=== PATIENT | male | born 1970 | race Caucasian/White ===

== ENCOUNTER 2016-10-20 14:02 | Emergency (ER) | payer OTHER, SELFPAY ==
[~2016-10-20] VITALS: Ht 175.3 cm; Wt 90.0 kg
[~2016-10-20 14:02] MED LIST: ACET65TA PO; AMLO10TA OR; CIPR-250 PO; CIPR500T4 PO; FLAG500T PO; LISIPOW PO; LOSA100T5 PO; METO50TA7 PO; NORC1TAB4 PO; NORCO ANEXSIA PO; NORCOBULK PO; NORCOTAB PO; VICO5TAB PO; VISINE OD; ZEST10TA4 PO
[2016-10-20] MEDS ORDERED: KETOROLAC 60 MG/2 ML VIAL (J1885) IM ONE (15:45)
[2016-10-20] MEDS ORDERED: NAPR500T3 PO (17:25)
[2016-10-20] MEDS ORDERED: BACL10TA2 PO (17:25)
[2016-10-20] MEDS ORDERED: MEDR4PAK PO (17:25)
[2016-10-20] MEDS ORDERED: LOSA100T5 PO (17:39)
[2016-10-20] MEDS ORDERED: cloNIDine 0.1 MG TAB PO ONE ×2 (17:45→18:30)
[2016-10-20 18:25] VITALS: BP 184/120
[2016-10-20 18:31] VITALS: BP 184/120
--- NOTE | 2016-10-21 06:43 | REP ---
CERVICAL SPINE COMPLETE: 10/20/2016. Comparison: 01/23/2016, 11/30/2015. Clinical history: Right upper extremity radiculopathy. Findings: Eight views including flexion and extension views and obliques. The three screws and plate fixation device from C4 through C6 are noted with bone plugs at C4-5 and C5-6 levels. This is unchanged. There is cervical spondylosis at multiple levels, greatest at C6-7 with anterior osteophytes and disc space narrowing. There is no malalignment. The dens and lateral masses align normally on all projections. Flexion and extension show adequate range of motion of the upper cervical spine with definite limitations of the lower cervical spine due to the hardware. No prevertebral swelling. Dens and lateral masses are normal in alignment. Foramina show mild encroachment at C5-6 and C6-7 due to uncinate spurs on the right and similarly on the left at C4-5 through C6-7. The other levels show patent foramina. Impression: 1. Status post anterior cervical discectomy and fusion from C4-C6 with a single screw through the plate into those respective vertebral bodies, intact. Fusion plugs at C4-5 and C5-6 are intact. 2. Spondylosis at C6-7 and C3-4. No compression deformity or destructive lesion. Somewhat limited range of motion but no instability. 3. Foraminal encroachment bilaterally as described. Signed by Dean Zurita MD 10/21/2016 07:56 A
--- NOTE | 2016-10-21 06:43 | REP ---
THORACIC SPINE COMPLETE: 10/20/2016. Comparison: MRI thoracic 08/25/2015, chest x-ray 11/26/2015. Clinical history: Right upper extremity radiculopathy. Pain. Findings: There is no scoliosis on the AP view. The pedicles, spinous and transverse processes are intact. Posterior rib articulations and medial clavicles are intact. On the lateral view, there are marginal osteophytes throughout the mid lower thoracic spine with some disc space narrowing but no acute compression deformity or focal lesion. Minor wedging mid thoracic vertebral body unchanged from previous chest x-ray and MRI. Craniocervical junction shows normal alignment and no compression. Impression: 1. Degenerative disc changes mid and lower thoracic spine without compression deformity or destructive bone lesion. No scoliosis or kyphosis. Signed by Dean Zurita MD 10/21/2016 07:56 A
== END 2016-10-20 18:41 | disposition home or self-care (01) ==
LOC: M ED 14:02
DX: M54.12 Radiculopathy, cervical region (principal); M51.34 Other intervertebral disc degeneration, thoracic region; M47.892 Other spondylosis, cervical region; M43.22 Fusion of spine, cervical region; I10 Essential (primary) hypertension; F17.200 Nicotine dependence, unspecified, uncomplicated; R51 Headache; K57.30 Diverticulosis of large intestine without perforation or abscess without bleeding; Z90.49 Acquired absence of other specified parts of digestive tract; Z79.899 Other long term (current) drug therapy
CPT/HCPCS: 72052; 72072; 96372; 99283; J1885

== ENCOUNTER → 2018-07-11 | Outpatient (CLI) | payer OTHER ==
[~2018-07-11] MED LIST changes: +BACL10TA2 PO; +MEDR4PAK PO; +NAPR-885 PO; -NORC1TAB4 PO; +NORC1TAB7 PO
[2018-07-11 19:27] LABS: ALBUMIN 3.9 GM/DL (3.2-5.2); BLOOD UREA NITROGEN 11 MG/DL (7-18); CARBON DIOXIDE LEVEL 28 MEQ/L (21-32); CHLORIDE LEVEL 104 MEQ/L (98-107); CREATININE FOR GFR 1.11 MG/DL (0.70-1.30); GLOMERULAR FILTRATION RATE > 60.0 (>60); GLUCOSE, FASTING 94 MG/DL (70-100); PHOSPHORUS LEVEL 3.3 MG/DL (2.5-4.9); SODIUM LEVEL 139 MEQ/L (136-145)
== END ==
LOC: M WUC 13:46
PROVIDERS: ATTEND Physician Assistant
DX: I10 Essential (primary) hypertension (principal)

== ENCOUNTER 2018-10-10 12:33 | Emergency (ER) | payer OTHER ==
[~2018-10-10] VITALS: Ht 175.3 cm; Wt 90.0 kg
--- NOTE | 2018-10-10 15:00 | REP ---
Left lower extremity deep vein duplex ultrasound: The deep veins demonstrate normal compression, normal Doppler color flow and normal Doppler waveforms with respiration and augmentation from the popliteal vein to the common femoral vein. 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 Impression: There is no left lower extremity deep vein thrombus. Electronically Signed by Chet Contreras MD 10/10/2018 02:52 P
[2018-10-10] MEDS ORDERED: PRED20TA PO (15:34)
[2018-10-10] MEDS ORDERED: TRIA1OI TOP (15:34)
[2018-10-10] MEDS ORDERED: CALC0.009 TOP (15:34)
[2018-10-10 15:40] VITALS: BP 189/106
== END 2018-10-10 15:48 | disposition home or self-care (01) ==
LOC: M ED 12:33
DX: I73.9 Peripheral vascular disease, unspecified (principal); I10 Essential (primary) hypertension; L40.9 Psoriasis, unspecified; F17.210 Nicotine dependence, cigarettes, uncomplicated

== ENCOUNTER 2020-05-27 12:38 | Inpatient (IN) | payer OTHER ==
[~2020-05-27] VITALS: Ht 175.3 cm; Wt 87.6 kg
[2020-05-27] MEDS: MULTIVITAMINS/MINERALS THERAP 1 TAB PO SCH (09:00)
[2020-05-27] MEDS: FOLIC ACID 1 MG TAB PO SCH (09:00)
[2020-05-27] MEDS: THIAMINE 100 MG TAB PO SCH ×2 (09:00→20:25)
[~2020-05-27 12:38] MED LIST changes: +CALC0.009 TOP; +PRED20TA PO; +TRIA1OI TOP
--- NOTE | 2020-05-27 13:06 | REP ---
INDICATION: neuro symptoms COMPARISON: None. TECHNIQUE: Axial noncontrast images from the skull base to the vertex with coronal reformations. This CT examination was performed using the following dose reduction techniques: Automated exposure control, adjustment of mA and/or kv according to the patient's size, and use of iterative reconstruction technique. FINDINGS: The ventricles, sulci, and cisterns are normal in position and appearance. Chen-white differentiation is maintained. No acute intracranial hemorrhage, mass/mass effect, pathology or trauma/injury. No evidence for acute infarction. No extra-axial fluid collection. Calvarium is intact. Paranasal sinuses and mastoid air cells are clear. IMPRESSION: No evidence for acute intracranial hemorrhage, edema or trauma/injury. <Electronically signed by Marquis Miller > 05/27/20 [id number]
[2020-05-27] MEDS ORDERED: LABETALOL 100MG/20ML VIAL IV ONE (13:50)
[2020-05-27 14:11] LABS: BASO # 0.1 10^3/uL (0.0-0.2); BASO % 1.1 % (0.0-1.0); EOS # 0.5 10^3/uL (0.0-0.5); HEMATOCRIT 54.5 % (42.0-52.0); HEMOGLOBIN 17.8 g/dl (13.5-17.5); LYMPH % 10.6 % (24.0-44.0); MEAN CORPUSCULAR HEMOGLOBIN 32.6 pg (27.0-33.0); MEAN CORPUSCULAR HGB CONC 32.7 g/dl (32.0-36.5); MEAN CORPUSCULAR VOLUME 99.8 fl (80.0-96.0); MONO # 0.9 10^3/uL (0.0-0.8); MONO % 10.4 % (2.0-8.0); NEUTROPHILS # 6.4 10^3/uL (1.5-8.5); NEUTROPHILS % 71.8 % (36.0-66.0); PLATELET COUNT, AUTOMATED 193 10^3/uL (150-450); RED BLOOD COUNT 5.46 10^6/uL (4.30-6.10)
[2020-05-27 14:26] LABS: ALBUMIN 3.5 GM/DL (3.2-5.2); ALT/SGPT 41 U/L (12-78); BILIRUBIN,TOTAL 0.7 MG/DL (0.2-1.0); BLOOD UREA NITROGEN 9 MG/DL (7-18); CALCIUM LEVEL 8.5 MG/DL (8.5-10.1); CARBON DIOXIDE LEVEL 27 MEQ/L (21-32); CHLORIDE LEVEL 108 MEQ/L (98-107); CK-MB VALUE MASS 2.5 NG/ML (<3.6); CPK CREATINE PHOSPHOKINASE 174 U/L (39-308); CREATININE FOR GFR 1.18 MG/DL (0.70-1.30); GLOMERULAR FILTRATION RATE > 60.0 (>60); GLUCOSE, FASTING 156 MG/DL (70-100); MB/CK RELATIVE INDEX 1.44 (< OR =4); SODIUM LEVEL 139 MEQ/L (136-145); TOTAL PROTEIN 7.1 GM/DL (6.4-8.2); TROPONIN I < 0.02 NG/ML (< 0.10)
[2020-05-27 14:43] LABS: RSV AMPLIFICATION NEGATIVE (NEGATIVE)
[2020-05-27] MEDS ORDERED: LORazepam 2 MG TAB PO PRN (14:45)
--- NOTE | 2020-05-27 14:50 | REPVR ---
PROCEDURE INFORMATION: Exam: MR Head Without Contrast Exam date and time: 05/27/2020 1:30 PM Age: 49 years old Clinical indication: Numbness / parasthesia; Bilateral; Patient HX: Tongue, lip numbness; Additional info: Stroke like symptoms TECHNIQUE: Imaging protocol: MR of the head without contrast. COMPARISON: CT Head without contrast 05/27/2020 12:47 PM FINDINGS: Brain: Multiple small foci of acute ischemia are present in the left cerebral hemisphere including within the left inferior parietal postcentral gyri and within the inferior parietal lobule. There is mild generalized cerebral volume loss and a small number of scattered foci of white matter T2 hyperintensity, nonspecific but commonly secondary to chronic small vessel ischemic change. Small focus of right pontine gliosis. No acute intracranial hemorrhage. Cerebral ventricles: No ventriculomegaly. Bones/joints: Unremarkable. Paranasal sinuses: Mild mucosal thickening. Mastoid air cells: No mastoid effusion. Orbital cavity: Unremarkable. Soft tissues: Unremarkable. Internal carotid arteries: Abnormal distal left internal carotid artery flow void from the distal cervical segment through the terminus. There is also blooming artifact within a presumed distal left M3 segment cortical branch, likely thrombus. IMPRESSION: 1. Multiple small foci of acute ischemia in the left cerebral hemisphere including within the parietal postcentral gyrus in keeping with sensory symptoms described in the history. No evidence of hemorrhage. Sulcal blooming artifact within the left cerebral hemisphere likely corresponds to an occluded M3 segment vessel corresponding with the distribution of infarction. 2. Abnormal distal left internal carotid artery flow void suspicious for slow flow or thrombus. Recommend CTA of the neck for further evaluation. Electronically signed by: Tomás Miranda On 05/27/2020 14:50:53 PM
--- NOTE | 2020-05-27 14:58 | REPVR ---
PROCEDURE INFORMATION: Exam: MR Angiogram Head Without Contrast, Arteries Exam date and time: 05/27/2020 1:30 PM Age: 49 years old Clinical indication: Numbness; Additional info: Stroke like symptoms TECHNIQUE: Imaging protocol: MR angiogram head without contrast. Exam focused on the arteries. COMPARISON: CT Head without contrast 05/27/2020 12:47 PM FINDINGS: There is moderate loss of flow related signal enhancement within the distal left cervical internal carotid artery through the communicating segment, without complete occlusion. The area of blooming artifact presumably associated with a left M3 cortical middle cerebral artery branch vessel noted on the concurrent brain MRI is above the field of imaging for this MRA. There is normal meju-lj-oqfhes flow related signal intensity in the right distal internal carotid arteries through the carotid terminus as well as within the distal segments of the vertebral arteries. Dominant right posterior communicating artery. Normal flow related signal intensity within the basilar artery, anterior cerebral arteries, right middle cerebral artery, and bilateral posterior cerebral arteries. No other high-grade stenosis, occlusion, aneurysm, or other acute abnormality of the [place] vasculature. IMPRESSION: 1. Moderate luminal narrowing of the left cervical internal carotid artery through the carotid terminus without complete occlusion. This suggests a proximal stenotic or occlusive lesion resulting in slow flow, consider CTA neck. 2. The area of suspected M3 cortical branch thrombus noted on the concurrent brain MRI is above the field of imaging for this MRA. THIS REPORT CONTAINS FINDINGS THAT MAY BE CRITICAL TO PATIENT CARE. The findings were verbally communicated via telephone conference with Mark Perez at 2:54 PM EST on 05/27/2020. The findings were acknowledged and understood. Electronically signed by: Tomás Miranda On 05/27/2020 14:58:14 PM
[2020-05-27] MEDS ORDERED: ASPIRIN 81 MG CHEW TABLET PO ONE (15:00)
[2020-05-27] MEDS ORDERED: LABETALOL 100MG/20ML VIAL IV PRN (15:10)
--- NOTE | 2020-05-27 15:21 | HPEPDOC ---
General Date of Admission 05/27/20 Date of Service: May 27, 2020 Chief Complaint The patient is a 49-year-old male admitted with a reason for visit of Stroke Like Symptoms. Source: Patient Exam Limitations: No limitations Timing/Duration: 4-6 hours Severity: Moderate History of Present Illness Patient is 49 years old male with past history of psoriasis and hypertension presented to the hospital with paresthesia or the lips and right oral cavity numbness. Patient stated that he woke up in the morning around 11:15 with lips paresthesia more on the right side. Also he noticed when he started drinking water he developed numbness of his right side of upper and lower gums. He noticed the tip of his tongue was numb as well. Subsequently after above hours oral numbness resolved, but he has been having lips paresthesia. Of note, patient didn't see PCP for years. He didn't take any medications for his blood pressure. Also patient is active smoker. Patient stated that he drinks on a daily basis 3 canes of beer for many years. In ER patient was found to have elevated blood pressure of 225/118, white blood count of 9, hemoglobin 17.8. CT head was negative for acute bleed. MRI of the brain showed Multiple small foci of acute ischemia in the left cerebral hemisphere including within the parietal postcentral gyrus in keeping with sensory symptoms described in the history. No evidence of hemorrhage. Sulcal blooming artifact within the left cerebral hemisphere likely corresponds to an occluded M3 segment vessel corresponding with the distribution of infarction. Abnormal distal left internal carotid artery flow void suspicious for slow flow or thrombus. EKG showed sinus rhythm, no any acute ischemic changes Home Medications No Active Prescriptions or Reported Meds Allergies Coded Allergies: No Known Drug Allergies (Verified Allergy, Unknown, 10/10/18) Past Medical History Medical History Hypertension, psoriasis Family History Father had history of stroke, mother has hypertension Social History * Smoker: current smoker Alcohol: heavy Drugs: denies, marijuana A-FIB/CHADSVASC A-FIB History Current/History of A-Fib/PAF?: No Current PO Anticoag Therapy: No Review of Systems Constitutional: Denies: Chills, Fever Eyes: Denies: Pain, Vision change ENT: Denies: Head Aches Skin: Reports: Lesions, Breakdown Pulmonary: Denies: Dyspnea Cardiovascular: Denies: Chest Pain, Palpitations Gastrointestinal: Denies: Nausea Genitourinary: Denies: Dysuria Hematologic: Denies: Bruising, Bleeding Excessively Endocrine: Denies: Polydipsia Musculoskeletal: Denies: Neck Pain, Back Pain Neurological: Reports: Numbness Psych: Reports: Mood Normal Physical Examination General Exam: Positive: Alert, Cooperative Eye Exam: Positive: PERRLA ENT Exam: Positive: Atraumatic Neck Exam: Positive: Supple; Negative: JVD Chest Exam: Positive: Clear to auscultation Heart Exam: Positive: Rate Normal Telemetry: Positive: No significant arrhythmia Abdomen Exam: Positive: Normal bowel sounds Extremity Exam: Negative: Clubbing Skin Exam: Positive: Lesion (multiple scaly lesions on the extensors of extremities and multiple scaly skin spots of lower extremities and chest) Neuro Exam: Positive: Normal Gait, Strength at 5/5 X4 ext Psych Exam: Positive: Mental status NL, Oriented x 3 Vital Signs Vital Signs Date Time Temp Pulse Resp B/P (MAP) Pulse Ox O2 Delivery O2 Flow Rate FiO2 05/27/20 14:42 73 201/129 05/27/20 13:29 Room Air 05/27/20 12:46 99.2 05/27/20 12:39 19 97 Laboratory Data Labs 24H Laboratory Tests 2 05/27/20 12:56: Bedside Glucose (Misc Panel) 161H 05/27/20 13:00: Immature Granulocyte % (Auto) 1.1, Neutrophils (%) (Auto) 71.8H, Lymphocytes (%) (Auto) 10.6L, Monocytes (%) (Auto) 10.4H, Eosinophils (%) (Auto) 5.0H, Basophils (%) (Auto) 1.1H, Neutrophils # (Auto) 6.4, Lymphocytes # (Auto) 1.0L, Monocytes # (Auto) 0.9H, Eosinophils # (Auto) 0.5, Basophils # (Auto) 0.1, Nucleated Red Blood Cells % (auto) 0.0, Anion Gap 4L, Glomerular Filtration Rate > 60.0, Calcium Level 8.5, Magnesium Level 2.0, Total Bilirubin 0.7, Aspartate Amino Transf (AST/SGOT) 23, Alanine Aminotransferase (ALT/SGPT) 41, Alkaline Phosphatase 99, Total Creatine Kinase 174, Creatine Kinase MB 2.5, Creatine Kinase MB Relative Index 1.44, Troponin I < 0.02, Total Protein 7.1, Albumin 3.5, Albumin/Globulin Ratio 1.0 05/27/20 13:04: POC Glucose (Misc Panel) 152H, POC Sodium (Misc Panel) 140, POC Potassium (Misc Panel) 4.0, POC Chloride (Misc Panel) 102, POC Total CO2 (Misc Panel) 25.0, POC Blood Urea Nitrogen (Misc Panel 8, POC Ionized Calcium (Misc Panel) 4.6, POC Creatinine (Misc Panel) 1.1, POC Hematocrit (Misc Panel) 55.0H 05/27/20 13:38: Coronavirus (COVID-19)(PCR) NEGATIVE, Influenza Type A (RT-PCR) NEGATIVE, Influenza Type B (RT-PCR) NEGATIVE, Respiratory Syncytial Virus (PCR) NEGATIVE CBC/BMP Laboratory Tests 05/27/20 13:00 Assessment/Plan Patient is 49 years old male with past history of psoriasis and hyperte nsion presented to the hospital with paresthesia or the lips and right oral cavity numbness. Patient stated that he woke up in the morning around 11:15 with lips paresthesia more on the right side. Also he noticed when he started drinking water he developed numbness of his right side of upper and lower gums. He noticed the tip of his tongue was numb as well. Subsequently after above hours oral numbness resolved, but he has been having lips paresthesia. Of note, patient didn't see PCP for years. He didn't take any medications for his blood pressure. Also patient is active smoker. Patient stated that he drinks on a daily basis 3 canes of beer for many years. In ER patient was found to have elevated blood pressure of 225/118, white blood count of 9, hemoglobin 17.8. CT head was negative for acute bleed. MRI of the brain showed Multiple small foci of acute ischemia in the left cerebral hemisphere including within the parietal postcentral gyrus in keeping with sensory symptoms described in the history. No evidence of hemorrhage. Sulcal blooming artifact within the left cerebral hemisphere likely corresponds to an occluded M3 segment vessel corresponding with the distribution of infarction. Abnormal distal left internal carotid artery flow void suspicious for slow flow or thro mbus. Problems (1) CVA (cerebral vascular accident) Status: Acute Problem Text: Patient has multiple risk factors including uncontrolled blood pressure, smoking history, alcohol abuse MRI showed Multiple small foci of acute ischemia in the left cerebral hemisphere including within the parietal postcentral gyrus in keeping with sensory symptoms described in the history MRA showed Moderate luminal narrowing of the left cervical internal carotid artery through the carotid terminus without complete occlusion. This suggests a proximal stenotic or occlusive lesion resulting in slow flow, consider CTA neck EKG showed sinus rhythm No indication for TPA, patient was out of therapeutic window Most likely patient developed embolic stroke given picture of multiple small foci. I talked to Dr. Cruzudin he rec ANTHONY during this admission CTA neck Echo Full dose of Aspirin, statin Permissive hypertension. We'll keep blood pressure in the range of 160-170 We will check lipid profile Telemetry Appreciate/agree with neurologist consult (2) Psoriasis Status: Chronic Problem Text: Patient has multiple scaly patches on his extremities and chest Follow-up with cover cutter in the outpatient settings (3) Tobacco abuse Status: Chronic Problem Text: Patient encouraged to stop smoking (4) HTN (hypertension) Status: Chronic Problem Text: Continue permissive hypertension for 6-8 hours Then we will start lisinopril (5) Hypertensive urgency Status: Acute Problem Text: Labetalol IV when necessary (6) ETOH abuse Status: Chronic Problem Text: CIWA protocol PRN Plan / VTE VTE Prophylaxis Ordered?: Yes STAN CRANE DO May 27, 2020 15:20
[2020-05-27] MEDS ORDERED: ISOVUE-370 76% 100ML VIAL As Ordered ONE (15:22)
--- NOTE | 2020-05-27 15:57 | REP ---
INDICATION: CVA. COMPARISON: None. TECHNIQUE: CT contrast dose: 100 ml of intravenous Isovue 370. Axial contrast-enhanced images were obtained from the skull base to the vertex with coronal reformations using 100 cc Isovue 370 intravenous contrast material. Maximal intensity projection and multiplanar re-formation images along with 3-D rendered imaging of the arterial vasculature. FINDINGS: The lxcxhe-ld-Fvfrks and visualized vertebrobasilar system appear intact and relatively normal. Vasculature to the bilateral hemispheres appears relatively symmetric although subtle decrease in vessels in the region of the left parietal infarction is subjectively noted. No obvious arteriovenous malformation or aneurysm detected. Remainder of the examination appears essentially normal. IMPRESSION: Essentially normal CT angiography of the head. No obvious arteriovenous malformation or aneurysm. Vasculature to the bilateral hemispheres and posterior fossa appears relatively symmetric although subtle decrease in vessels in the region of the left parietal infarction is subjectively noted. <Electronically signed by Marquis Miller > 05/27/20 1966
[2020-05-27 16:01] LABS: CHOLESTEROL LEVEL 239 MG/DL (<200); CHOLESTEROL RISK RATIO 4.686 (<5); HDL CHOLESTEROL 51 MG/DL (>40); LDL CHOLESTEROL 163 MG/DL (<100); NON-HDL-C 188 MG/DL; TRIGLYCERIDES LEVEL 126 MG/DL (<150)
--- NOTE | 2020-05-27 16:06 | REP ---
INDICATION: left carotid occlusion?, pt has stroke like sxs. COMPARISON: None. TECHNIQUE: Axial contrast-enhanced images were obtained from the thoracic inlet to the skull base with coronal and sagittal reformations using 100 cc Isovue 370 intravenous contrast material. Maximal intensity projection and multiplanar re-formation images along with 3-D rendered imaging of the arterial vasculature. This CT examination was performed using the following dose reduction techniques: Automated exposure control, adjustment of mA and/or kv according to the patient's size, and the use of iterative reconstruction technique. FINDINGS: The right common carotid artery, carotid bulb, external carotid artery and internal carotid artery to the skull is normal. The left common carotid artery is normal. There is moderate to significant atheromatous plaquing and luminal narrowing at the level of the carotid bulb followed by short segment of significant narrowing at the greater than 70% range through the proximal internal carotid artery and subsequent normally enhancing but decreased caliber internal carotid artery to the skull base as compared with the normal right carotid artery. IMPRESSION: 1. Atherosclerotic changes starting at the carotid bulb with moderate narrowing followed by greater than 70% narrowing through the proximal internal carotid artery and subsequent asymmetric luminal narrowing (as compared to the normal right carotid artery) to the skull base. 2. Normal appearance to the right carotid system. <Electronically signed by Marquis Miller > 05/27/20 [id number]
[2020-05-27 16:24] LABS: HEMOGLOBIN A1c 5.5 %
[2020-05-27 16:59] VITALS: BP 190/92
[2020-05-27 18:33] VITALS: BP 160/103
[2020-05-27 20:00] VITALS: BP_SYST 166; BP_SYST 168; BP_DIAS 100; BP_DIAS 101
[2020-05-27] MEDS: ATORVASTATIN 20 MG TAB PO SCH (20:25)
[2020-05-27] MEDS: ENOXAPARIN 40MG/0.4ML SYRINGE (J1650 PER 10MG) SC SCH (20:26)
[2020-05-28] VITALS: BP 115/75
[2020-05-28 04:00] VITALS: BP 136/79
[2020-05-28 06:09] LABS: HEMATOCRIT 50.9 % (42.0-52.0); HEMOGLOBIN 16.5 g/dl (13.5-17.5); MEAN CORPUSCULAR HEMOGLOBIN 32.6 pg (27.0-33.0); MEAN CORPUSCULAR HGB CONC 32.4 g/dl (32.0-36.5); MEAN CORPUSCULAR VOLUME 100.6 fl (80.0-96.0); PLATELET COUNT, AUTOMATED 179 10^3/uL (150-450); RED BLOOD COUNT 5.06 10^6/uL (4.30-6.10); WHITE BLOOD COUNT 9.4 10^3/uL (4.0-10.0)
[2020-05-28 06:38] LABS: ALBUMIN 3.1 GM/DL (3.2-5.2); ALT/SGPT 34 U/L (12-78); BILIRUBIN,TOTAL 0.8 MG/DL (0.2-1.0); BLOOD UREA NITROGEN 10 MG/DL (7-18); CALCIUM LEVEL 8.2 MG/DL (8.5-10.1); CARBON DIOXIDE LEVEL 29 MEQ/L (21-32); CHLORIDE LEVEL 106 MEQ/L (98-107); CREATININE FOR GFR 1.11 MG/DL (0.70-1.30); GLOMERULAR FILTRATION RATE > 60.0 (>60); GLUCOSE, FASTING 94 MG/DL (70-100); MAGNESIUM LEVEL 2.3 MG/DL (1.8-2.4); SODIUM LEVEL 140 MEQ/L (136-145); TOTAL PROTEIN 6.7 GM/DL (6.4-8.2)
[2020-05-28 08:00] VITALS: BP 124/62
[2020-05-28] MEDS ORDERED: ASPIRIN 81 MG CHEW TABLET PO SCH ×2 (09:00)
[2020-05-28] MEDS: MULTIVITAMINS/MINERALS THERAP 1 TAB PO SCH (09:23)
[2020-05-28] MEDS: THIAMINE 100 MG TAB PO SCH ×2 (09:23→20:20)
[2020-05-28] MEDS: FOLIC ACID 1 MG TAB PO SCH (09:23)
--- NOTE | 2020-05-28 09:33 | ECGEPIP ---
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
[2020-05-28 12:00] VITALS: BP 140/86
--- NOTE | 2020-05-28 13:54 | IPNPDOC ---
Text Note Date of Service The patient was seen on 05/28/20. NOTE Subjective: No any acute events overnight. Patient denied any focal weaknesses, slurred speech. No fever, no chills. Objective: GENERAL APPEARANCE: NAD HEENT: no scleral icterus, no JVD, EOMI CARDIOVASCULAR: S1S2 LUNGS: CTA ABDOMEN: soft & not tender w palpitation MUSCULOSKELETAL: no cyanosis, no swelling INTEGUMENT: no generalized pallor NEUROLOGICAL: cranial nerve function from 2-12 intact intact, follows commands, speech not dysarthric Assessment and plan: Assessment/Plan Patient is 49 years old male with past history of psoriasis and hypertension presented to the hospital with paresthesia or the lips and right oral cavity numbness. Patient stated that he woke up in the morning around 11:15 with lips paresthesia more on the right side. Also he noticed when he started drinking water he developed numbness of his right side of upper and lower gums. He noticed the tip of his tongue was numb as well. Subsequently after above hours oral numbness resolved, but he has been having lips paresthesia. Of note, patient didn't see PCP for years. He didn't take any medications for his blood pressure. Also patient is active smoker. Patient stated that he drinks on a daily basis 3 canes of beer for many years. In ER patient was found to have elevated blood pressure of 225/118, white blood count of 9, hemoglobin 17.8. CT head was negative for acute bleed. MRI of the brain showed Multiple small foci of acute ischemia in the left cerebral hemisphere including within the parietal postcentral gyrus in keeping with sensory symptoms described in the history. No evidence of hemorrhage. Sulcal blooming artifact within the left cerebral hemisphere likely corresponds to an occluded M3 segment vessel corresponding with the distribution of infarction. Abnormal distal left internal carotid artery flow void suspicious for slow flow or thrombus. CVA (cerebral vascular accident) Patient has multiple risk factors including uncontrolled blood pressure, smoking history, alcohol abuse MRI showed Multiple small foci of acute ischemia in the left cerebral hemisphere including within the parietal postcentral gyrus in keeping with sensory symptoms described in the history MRA showed Moderate luminal narrowing of the left cervical internal carotid artery through the carotid terminus without complete occlusion. 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 I talked to Dr. Calero he rec ANTHONY during this admission Echo pending Patient received Full dose of Aspirin, statin on admission On 05/28/20 CTA neck showed Atherosclerotic changes starting at the carotid bulb with moderate narrowing followed by greater than 70% narrowing through the proximal internal carotid artery and subsequent asymmetric luminal narrowing (as compared to the normal right carotid artery) to the skull base Dr. Calero recommended to add Plavix 75 mg and continue aspirin with dose 81 mg Carotid artery stenosis I talked to Dr. Houser , she recommended carotid Doppler ultrasound She will evaluate patient for surgery Psoriasis Patient has multiple scaly patches on his extremities and chest Follow-up with consulting group analyst in the outpatient settings Tobacco abuse Patient encouraged to stop smoking HTN (hypertension) Blood pressures under control Patient received treatment with permissive hypertension for 6-8 hours on the day of admission Continue lisinopril Hypertensive urgency Labetalol IV when necessary ETOH abuse CIWA protocol PRN VS,Fishbone, I+O VS, Fishbone, I+O Laboratory Tests 05/28/20 05:23 Vital Signs Date Time Temp Pulse Resp B/P (MAP) Pulse Ox O2 Delivery O2 Flow Rate FiO2 05/28/20 12:00 96.7 63 17 140/86 (104) 96 Room Air I&O- Last 24 Hours up to 6 AM 05/28/20 06:00 Intake Total 1155 ml Output Total 300 ml Balance 855 ml STAN CRANE DO May 28, 2020 13:54
[2020-05-28] MEDS ORDERED: CLOPIDOGREL 75 MG TAB PO ONE (14:00)
--- NOTE | 2020-05-28 19:43 | REPVR ---
PROCEDURE INFORMATION: Exam: US Duplex Bilateral Extracranial Arteries Exam date and time: 05/28/2020 6:56 PM Age: 49 years old Clinical indication: Stroke; Additional info: Stenosis TECHNIQUE: Imaging protocol: Real-time Duplex ultrasound scan of the bilateral carotid and vertebral arteries combining salguero scale, color Doppler and spectral waveform analysis. Bilateral exam. COMPARISON: CT ANGIO NECK 05/27/2020 3:26 PM FINDINGS: Right common carotid artery: Unremarkable. No occlusion or significant stenosis. Waveforms are normal. Peak systolic velocity of 53.7 cm/s. Right internal carotid artery: Unremarkable. No occlusion or significant stenosis. Waveforms are normal. Peak systolic velocity of 34.9 cm/s. Right ICA/CCA ratio: 0.79. Within normal limits (<2). Right external carotid artery: No significant stenosis in the origin. Peak systolic velocity of 77.4 cm/s. Right vertebral artery: Unremarkable. Antegrade flow. Peak systolic velocity of 44.5 cm/s. Left common carotid artery: Unremarkable. No occlusion or significant stenosis. Waveforms are normal. Peak systolic velocity of 43.4 cm/s. Left internal carotid artery: There is severe (70-94%) stenosis of the left proximal internal carotid artery, which has a peak systolic velocity 263.2 cm/s secondary to predominantly noncalcified atherosclerotic plaque. Left ICA/CCA ratio: 6.06. Within normal limits (<2). Left external carotid artery: No significant stenosis in the origin. Peak systolic velocity of 66 cm/s. Left vertebral artery: Unremarkable. Antegrade flow. Peak systolic velocity of 23.5 cm/s. IMPRESSION: Severe (70-94%) stenosis of the left proximal internal carotid artery. REFERENCES: SRU CRITERIA. The degree of internal carotid artery stenosis is based on criteria defined by the Society of Radiologists in Ultrasound (SRU). Normal is no stenosis. Mild is less than 50% stenosis. Moderate is 50-69% stenosis. Severe is greater than 69% stenosis to near occlusion. Near occlusion is a markedly narrowed lumen. Total occlusion is no detectable patent lumen. Electronically signed by: Iker Serrano On 05/28/2020 19:42:45 PM
[2020-05-28 20:00] VITALS: BP 168/96
[2020-05-28] MEDS: ENOXAPARIN 40MG/0.4ML SYRINGE (J1650 PER 10MG) SC SCH (20:20)
[2020-05-28] MEDS: ATORVASTATIN 20 MG TAB PO SCH (20:20)
--- NOTE | 2020-05-28 22:49 | IPN ---
PROGRESS NOTE DATE: 05/27/2020 I was asked by Dr. Zepeda to perform transesophageal echocardiogram on Mr. Hawk for a diagnosis of cerebrovascular accident. When I entered his room, he was being evaluated by Dr. Head. I spoke with the patient about the diagnosis, about the rationale for transesophageal echocardiogram and potential findings and their implications. I explained the nature of the procedure in detail. All patient's questions were answered and he signed appropriate consent. I also examined the patient. The patient important findings indicate presence of diastolic murmur suggestive of aortic insufficiency and also very prominent bruit over the left carotid artery. I could not elicit any definite neurologic deficit. ASSESSMENT AND PLAN: Mr. Hawk is a young man who has a history of hypertension who presents with symptoms of stroke that was confirmed by neuro imaging. Even though there is evidence for left carotid artery stenosis, I was asked to perform transesophageal echocardiogram to rule out cardiac sources of emboli. Considering patient's young age, I believe it is certainly a reasonable request. I obtained necessary consent. Because the patient just completed his lunch when I saw him, we will tentatively plan on performing the echocardiogram tomorrow.
[2020-05-29] VITALS (8 sets, daily range): BP systolic 137–170; BP diastolic 82–100
[2020-05-29] MEDS ORDERED: EPINEPHrine INJ 1 MG/ML 1ML AMP IM PRN
[2020-05-29] MEDS ORDERED: diphenhydrAMINE 50MG/ML VIAL (J1200) IM PRN
[2020-05-29] MEDS ORDERED: LABETALOL 100MG/20ML VIAL IV STA (00:14)
[2020-05-29] MEDS ORDERED: SLF 3 ML SYR IV PRN (07:55)
[2020-05-29] MEDS: THIAMINE 100 MG TAB PO SCH (08:31)
[2020-05-29] MEDS: MULTIVITAMINS/MINERALS THERAP 1 TAB PO SCH (08:31)
[2020-05-29] MEDS: CLOPIDOGREL 75 MG TAB PO SCH (08:31)
[2020-05-29] MEDS: FOLIC ACID 1 MG TAB PO SCH (08:31)
[2020-05-29] MEDS: ASPIRIN 81 MG CHEW TABLET PO SCH (08:32)
--- NOTE | 2020-05-29 09:42 | CR.PDOC ---
General Date of Consultation: May 29, 2020 Consultation REASON FOR CONSULTATION/CHIEF COMPLAINT: CVA HISTORY OF PRESENT ILLNESS: This is a very pleasant 49-year-old gentleman with recent left-sided CVA and severe left ICA stenosis. The patient says on Friday his woke him up to say goodbye before she went to work and he felt fine at that time. He went back to sleep, and says he woke up about 11:30 AM and tried to light a cigarette. He said he noticed he could not feel the cigarette on his bottom lip, so he did not smoke. He then went to get a couple coffee and couldn't drink the coffee and it was dripping off the bottom of his lip. He then went to brush his teeth and couldn't feel his gums or his tongue. He called his and she suggested he be evaluated in the emergency department. The patient has had an extensive neurologic workup, including MRI of the brain which revealed multiple acute left parietal ischemic foci. His CTA of the neck sugges sanam severe left ICA stenosis, which was confirmed by carotid duplex. On the right side, the patient has no significant carotid stenosis, with a PSV/EDV of 34.9/14.6 and ICA/CC ratio of 0.65. On the left however, the patient has PSV/EDV of 263/133 with an ICA/CCA ratio of 6. This correlates with an 80-90% stenosis on the left. This certainly could've been the etiology for the patient's stroke. He is getting appropriate cardiac workup as well with an echo today. I discussed with the patient the risks benefits and alternatives to a left carotid artery endarterectomy with shunt and patch angioplasty. I like to do it on this admission if possible to prevent another stroke. He has almost recovered all of his oral and perioral sensation, with only a little bit of lip numbness remaining. The patient is agreeable to proceed. We will recommend aspirin Plavix and statin, and do not hold the aspirin and Plavix for surgery. Informed consent obtained. ALLERGIES: Please see below. HOME MEDICATIONS: Please see below. PAST MEDICAL HISTORY: Hypertension, psoriasis, diverticulosis PAST SURGICAL HISTORY: Partial colectomy with colostomy, colostomy reversal, tonsillectomy FAMILY HISTORY: Stroke, hypertension SOCIAL HISTORY: Long-standing history tobacco abuse, daily alcohol, occasional marijuana REVIEW OF SYSTEMS: CONSTITUTIONAL: Denies fevers or chills HEENT: Denies hearing loss or vision changes, reports numbness of the bottom lip, gums and tongue CARDIOVASCULAR: Denies chest pain RESPIRATORY: Denies shortness of breath GENITOURINARY: Denies dysuria MUSCULOSKELETAL: Denies claudication. GASTROINTESTINAL: Denies nausea vomiting SKIN: Positive rash NEUROLOGICAL: Denies upper or lower extremity deficits, denies vision changes, positive numbness of the bottom lip gums and tongue PSYCHIATRIC: Denies anxiety depression ENDOCRINE: Denies diabetes HEMATOLOGIC/LYMPHATIC: Denies anemia ALLERGIC/IMMUNOLOGIC: Denies PHYSICAL EXAMINATION: VITAL SIGNS: Please see below. GENERAL APPEARANCE: Medically stable HEENT: Normocephalic TMI, vision grossly intact. Sensation intact over left lower lip, but not right lower lip. RESPIRATORY: Clear to auscultation CARDIOVASCULAR: Regular rate and rhythm ABDOMEN: Soft nontender EXTREMITIES: Distal pulses intact. Psoriatic rash present. NEUROLOGICAL: Patient still has some numbness on the right lateral lower lip, but otherwise intact sensation and motor. No focal deficits upper or lower extremities, moves all extremities equally. PSYCHIATRIC: Pleasant and cooperative LABORATORY DATA: Please see below. ASSESSMENT/PLAN: Very pleasant 49-year-old gentleman with hypertension and long history of tobacco abuse with severe left ICA stenosis and CVA 1. Recommend aspirin Plavix and statin for best medical management. Do not hold Plavix for endarterectomy. 2. Will plan for left carotid endarterectomy. I am hoping this can be done morning if were able to rearrange some of my clinic. We appreciate the opportunity to participate in the care of this patient. Vital Signs/I&O Vital Signs Date Time Temp Pulse Resp B/P (MAP) Pulse Ox O2 Delivery O2 Flow Rate FiO2 05/29/20 04:00 97.9 68 18 139/85 (103) 98 Room Air I&O- Last 24 Hours up to 6 AM 05/29/20 05:59 Intake Total 655 ml Output Total 750 ml Balance -95 ml Allergies Coded Allergies: No Known Drug Allergies (Verified Allergy, Unknown, 10/10/18) Home Medications No Active Prescriptions or Reported Meds ANI BLACKWELL MD May 29, 2020 08:53
[2020-05-29] MEDS ORDERED: COVID-19 VAC,AD26(JANSSEN)/PF 0.5ML SYRINGE (EUA) IM ONE (10:00)
--- NOTE | 2020-05-29 10:15 | IPN ---
PROGRESS NOTE DATE: 05/29/2020 SUBJECTIVE: I spoke with Mr. Hawk this morning again. He is tentatively scheduled for transesophageal echocardiogram later this afternoon. I briefly examined him. His condition did not appreciably change since yesterday. He had a few additional questions that were answered. I stressed the importance of staying NPO today. Tentatively, the procedure is scheduled around 5 o'clock this p.m.
--- NOTE | 2020-05-29 10:46 | IPNPDOC ---
Text Note Date of Service The patient was seen on 05/29/20. NOTE Subjective: No any acute events overnight. Patient resting comfortably in the bed. Patient denied any focal neurological deficiency Objective: GENERAL APPEARANCE: NAD HEENT: no scleral icterus, no JVD, EOMI CARDIOVASCULAR: S1S2 LUNGS: CTA ABDOMEN: soft & not tender w palpitation MUSCULOSKELETAL: no cyanosis, no swelling INTEGUMENT: no generalized pallor NEUROLOGICAL: cranial nerve function from 2-12 intact intact, follows commands, speech not dysarthric Assessment and plan: Assessment/Plan Patient is 49 years old male with past history of psoriasis and hypertension presented to the hospital with paresthesia or the lips and right oral cavity numbness. Patient stated that he woke up in the morning around 11:15 with lips paresthesia more on the right side. Also he noticed when he started drinking water he developed numbness of his right side of upper and lower gums. He noticed the tip of his tongue was numb as well. Subsequently after above hours oral numbness resolved, but he has been having lips paresthesia. Of note, patient didn't see PCP for years. He didn't take any medications for his blood pressure. Also patient is active smoker. Patient stated that he drinks on a daily basis 3 canes of beer for many years. In ER patient was found to have elevated blood pressure of 225/118, white blood count of 9, hemoglobin 17.8. CT head was negative for acute bleed. MRI of the brain showed Multiple small foci of acute ischemia in the left cerebral hemisphere including within the parietal postcentral gyrus in keeping with sensory symptoms described in the history. No evidence of hemorrhage. Sulcal blooming artifact within the left cerebral hemisphere likely corresponds to an occluded M3 segment vessel corresponding with the distribution of infarction. Abnormal distal left internal carotid artery flow void suspicious for slow flow or thrombus. CVA (cerebral vascular accident) Patient has multiple risk factors including uncontrolled blood pressure, smoking history, alcohol abuse MRI showed Multiple small foci of acute ischemia in the left cerebral hemisphere including within the parietal postcentral gyrus in keeping with sensory symptom s described in the history MRA showed Moderate luminal narrowing of the left cervical internal carotid artery through the carotid terminus without complete occlusion. 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 I talked to Dr. Calero he rec ANTHONY during this admission Echo pending Patient received Full dose of Aspirin, statin on admission On 05/28/20 CTA neck showed Atherosclerotic changes starting at the carotid bulb with moderate narrowing followed by greater than 70% narrowing through the proximal internal carotid artery and subsequent asymmetric luminal narrowing (as compared to the normal right carotid artery) to the skull base Dr. Calero recommended to add Plavix 75 mg and continue aspirin with dose [address] Dumont will proceed with ANTHONY later today Carotid artery stenosis I talked to Dr. Houser , she recommended carotid Doppler ultrasound Doppler ultrasound showed Severe (70-94%) stenosis of the left proximal internal carotid artery. 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 Tobacco abuse Patient encouraged to stop smoking HTN (hypertension) Blood pressures under control Patient received treatment with permissive hypertension for 6-8 hours on the day of admission I increased the dose of lisinopril to 40 mg daily Hypertensive urgency Labetalol IV when necessary ETOH abuse CIWA protocol PRN VS,Fishbone, I+O VS, Fishbone, I+O Vital Signs Date Time Temp Pulse Resp B/P (MAP) Pulse Ox O2 Delivery O2 Flow Rate FiO2 05/29/20 08:32 160/91 05/29/20 08:00 98.2 72 18 96 Room Air I&O- Last 24 Hours up to 6 AM 05/29/20 06:00 Intake Total 300 ml Output Total 450 ml Balance -150 ml STAN CRANE DO May 29, 2020 10:46
--- NOTE | 2020-05-29 14:01 | ECHO ---
DATE OF PROCEDURE: 05/28/2020 Age: 49 Gender: Male Height: 175 cm Weight: 88 kg REFERRING PHYSICIAN: STAN CRANE DO INDICATION: Cerebrovascular accident MEASUREMENTS: LA 4.0 cm IVS 1.7 cm LV 4.8 cm LVPW 1.5 cm Aorta 3.9 cm IVC 1.7 cm DOPPLER MEASUREMENT Mitral E wave velocity 69 Mitral A wave 66 E prime septal 7.4 E prime lateral 7.0 FINDINGS: This study is of good technical quality. The patient is in sinus rhythm. Left ventricle is normal size. Moderate left ventricular hypertrophy is noted. Overall, there is normal LV systolic function with estimated LV of approximately 60% to 65%. I do not appreciate any segmental wall motion abnormalities. The right ventricle is also normal size and systolic function. The left atrium is mildly enlarged. The right atrium is likely normal size. There is a lipomatous hypertrophy of intraatrial septum, which is an incidental finding of no clinical significance. The aortic valve is tricuspid. There is a very prominent calcification in the left coronary cusp. No definite vegetation is seen. Mitral, tricuspid, and pulmonic valves appear normal. No pericardial effusion is noted. Inferior vena cava is normal size and collapses with inspiration, indicative of normal central venous pressure. The aortic root, aortic arch, and visualized segment of the abdominal aorta all appear normal. Doppler interrogation reveals no aortic stenosis and mild aortic insufficiency. There is also mild mitral insufficiency. Tricuspid and pulmonic valves are functionally competent. Mitral inflow pattern and tissue Doppler imaging of mitral annulus reveals grade 2 diastolic dysfunction. Injection of agitated saline through peripheral veins does not reveal any evidence for [id number] shunt. CONCLUSIONS: 1. Study is of good technical quality, the patient is in sinus rhythm. 2. Normal LV size with moderate LVH and preserved LV systolic function. Grade 2 diastolic dysfunction. 3. Prominent calcifications in the left coronary cusp of aortic valve. No aortic stenosis. Mild aortic insufficiency. 4. Mild mitral insufficiency. 5. Likely normal central venous pressure. 6. Borderline dilated aortic root (3.9 cm). 7. Negative bubble study. COMMENTS: The study is most consistent with hypertensive heart disease. MTDD
[2020-05-29] MEDS: SLF 3 ML SYR IV SCH ×2 (14:21→22:47)
[2020-05-29] MEDS ORDERED: CETACAINE SPRAY 5GM As Ordered ONE (16:53)
[2020-05-29] MEDS ORDERED: LIDOCAINE VISCOUS 2% SOLN 15ML UDC As Ordered ONE (16:53)
[2020-05-29] MEDS ORDERED: propofoL 500 MG/50 ML VIAL As Ordered ONE (17:01)
[2020-05-29] MEDS ORDERED: LIDOCAINE 2% 100MG/5ML SDV (FOR ANES.) As Ordered ONE (17:01)
[2020-05-29] MEDS ORDERED: fentaNYL 100 MCG/2 ML INJECTION (J3010) As Ordered ONE (17:02)
[2020-05-29] MEDS ORDERED: MIDAZOLAM INJ 2MG/2ML VIAL (J2250 PER 1MG) As Ordered ONE (17:02)
[2020-05-29] MEDS: ENOXAPARIN 40MG/0.4ML SYRINGE (J1650 PER 10MG) SC SCH (20:32)
[2020-05-29] MEDS: ATORVASTATIN 20 MG TAB PO SCH (20:33)
[2020-05-30] VITALS: BP 156/86
[2020-05-30 04:00] VITALS: BP 142/83
[2020-05-30] MEDS: SLF 3 ML SYR IV SCH ×3 (05:29→21:35)
[2020-05-30 08:00] VITALS: BP 163/92
--- NOTE | 2020-05-30 08:33 | IPNPDOC ---
Text Note Date of Service The patient was seen on 05/30/20. NOTE Vascular Surgery Dr Summers. The pt is a 49-year-old gentleman with hypertension and long history of tobacco abuse with severe left ICA stenosis and CVA. the pt states he has sone residual numbness of the Rt lower lip. Otherwise ststes he is feeling back to baseline this AM. GENERAL APPEARANCE: NAD HEENT: Normocephalic, vision grossly intact. Sensation intact over left lower l ip, but not right lower lip. RESPIRATORY: Clear to auscultation CARDIOVASCULAR: Regular rate and rhythm ABDOMEN: Soft nontender EXTREMITIES: Distal pulses intact. Psoriatic rash present. NEUROLOGICAL: Patient still has some numbness on the right lateral lower lip, but otherwise intact sensation and motor. No focal deficits upper or lower extremities, moves all extremities equally. PSYCHIATRIC: Pleasant and cooperative A/P Severe left ICA stenosis and CVA. Plan to proceed with Left CEA as per Dr Summers 06/01/20. The procedure, risks, benefits and alternatives are reviewed with the pt, all questions are answered, Informed consent is obtained and placed with the chart. Transfusion consent is obtained and placed with the chart. Continue ASA/Plavix/statin. VS,Fishbone, I+O VS, Fishbone, I+O Vital Signs Date Time Temp Pulse Resp B/P (MAP) Pulse Ox O2 Delivery O2 Flow Rate FiO2 05/30/20 08:00 99.2 65 18 163/92 (115) 97 Room Air I&O- Last 24 Hours up to 6 AM 05/30/20 05:59 Intake Total 600 ml Output Total 650 ml Balance -50 ml Glenny Lincoln May 30, 2020 08:33
[2020-05-30] MEDS: ASPIRIN 81 MG CHEW TABLET PO SCH (09:14)
[2020-05-30] MEDS: CLOPIDOGREL 75 MG TAB PO SCH (09:14)
--- NOTE | 2020-05-30 10:03 | T-ECHO ---
TRANSESOPHAGEAL ECHO DATE: 05/29/2020 INDICATIONS: Stroke. REFERRING PHYSICIAN: Mina Zepeda DO INDICATIONS: Mr. Hawk is a 49-year-old man who presented to [facility] ([facility]) with fairly mild neurologic deficit and was found to have multiple foci of ischemic stroke in the left hemisphere. Subsequent neural imaging also revealed evidence for left carotid artery stenosis but Dr. Head from neurologic service requested transesophageal echocardiogram to look for possible alternative sources of cardiac emboli. The nature of the procedure, its potential findings and complications were discussed with the patient the day prior to the procedure and then again the morning of the procedure. He did sign appropriate consent. PROCEDURE NOTE: The procedure was performed in the operating room. The patient presented in fasting condition. After appropriate timeout was taken, and all monitors were applied, his posterior pharynx was anesthetized using Xylocaine spray and viscous lidocaine. He was then positioned in the left lateral decubital position. Bite block was placed. After appropriate sedation was accomplished, the probe was introduced into the esophagus and later stomach without difficulty. After all images were obtained, it was withdrawn. There were no immediate complications and the patient tolerated the procedure well. FINDINGS: Left ventricle is hypertrophic and appears mildly hypokinetic. I would estimate ejection fraction around 50%. Right ventricle appears normal size in systolic function. Both atria appeared grossly normal. Mitral valve is thin and normally mobile. No vegetations were seen. Trace insufficiency seen by color Doppler imaging. Aortic valve has tricuspid morphology. There are calcifications at the edges of aortic cusps but no mobile vegetations. By color Doppler imaging, there is mild insufficiency with pressure half time at 580 milliseconds. No stenosis. Tricuspid valve appears normal. There is no insufficiency of the valve. Same applies for pulmonic valve that was poorly seen. Left atrial appendage is free of thrombus. There is normal flow in both left-sided and right-sided pulmonary veins. Atrial septum is thickened consistent with lipomatous hypertrophy. There is no shunt across the septum based on two-dimensional, color Doppler imaging and also based on injection of vegetated saline. There is prominent atherosclerosis of aortic arch and descending aorta but there are no visible ulcerations or thrombi. CONCLUSIONS: 1. Left ventricle hypertrophy with estimated ejection fraction (EF) approximately 50% and no segmental wall motion abnormalities. 2. Aortic sclerosis on tricuspid aortic valve resulting in no significant stenosis and mild insufficiency. 3. Normal mitral tricuspid and pulmonic valves. 4. Intact atrial septum, lipomatous hypertrophy. Negative "bubble study". 5. Left atrial appendage free of thrombus. 6. Normal flow in pulmonary veins. 7. Prominent atherosclerosis of thoracic aorta. MTDD
--- NOTE | 2020-05-30 10:56 | IPNPDOC ---
Text Note Date of Service The patient was seen on 05/30/20. NOTE Subjective: Patient stated that he is doing better today. He tolerated ANTHONY well yesterday. Objective: GENERAL APPEARANCE: NAD HEENT: no scleral icterus, no JVD, EOMI CARDIOVASCULAR: S1S2 LUNGS: CTA ABDOMEN: soft & not tender w palpitation MUSCULOSKELETAL: no cyanosis, no swelling INTEGUMENT: no generalized pallor NEUROLOGICAL: cranial nerve function from 2-12 intact intact, follows commands, speech not dysarthric Assessment and plan: Assessment/Plan Patient is 49 years old male with past history of psoriasis and hypertension presented to the hospital with paresthesia or the lips and right oral cavity numbness. Patient stated that he woke up in the morning around 11:15 with lips paresthesia more on the right side. Also he noticed when he started drinking water he developed numbness of his right side of upper and lower gums. He noticed the tip of his tongue was numb as well. Subsequently after above hours oral numbness resolved, but he has been having lips paresthesia. Of note, patient didn't see PCP for years. He didn't take any medications for his blood pressure. Also patient is active smoker. Patient stated that he drinks on a da bairon basis 3 canes of beer for many years. In ER patient was found to have elevated blood pressure of 225/118, white blood count of 9, hemoglobin 17.8. CT head was negative for acute bleed. MRI of the brain showed Multiple small foci of acute ischemia in the left cerebral hemisphere including within the parietal postcentral gyrus in keeping with sensory symptoms described in the history. No evidence of hemorrhage. Sulcal blooming artifact within the left cerebral hemisphere likely corresponds to an occluded M3 segment vessel corresponding with the distribution of infarction. Abnormal distal left internal carotid artery flow void suspicious for slow flow or thrombus. CVA (cerebral vascular accident) Patient has multiple risk factors including uncontrolled blood pressure, smoking history, alcohol abuse MRI showed Multiple small foci of acute ischemia in the left cerebral hemisphere including within the parietal postcentral gyrus in keeping with sensory symptoms described in the history MRA showed Moderate luminal narrowing of the left cervical internal carotid artery through the carotid terminus without complete occlusion. 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 I talked to Dr. Calero he rec ANTHONY during this admission Echo pending Patient received Full dose of Aspirin, statin on admission On 05/28/20 CTA neck showed Atherosclerotic changes starting at the carotid bulb with moderate narrowing followed by greater than 70% narrowing through the proximal internal carotid artery and subsequent asymmetric luminal narrowing (as compared to the normal right carotid artery) to the skull base Dr. Calero recommended to add Plavix 75 mg and continue aspirin with dose [address] Dumont did ANTHONY on 05/29/20, it shows: Left ventricle hypertrophy with estimated ejection fraction (EF) approximately 50% and no segmental wall motion abnormalities. 2. Aortic sclerosis on tricuspid aortic valve resulting in no significant stenosis and mild insufficiency. 3. Normal mitral tricuspid and pulmonic valves. 4. Intact atrial septum. 5. Left atrial appendage free of thrombus. 6. Normal flow in pulmonary veins. 7. Prominent atherosclerosis of thoracic aorta. Diastolic CHF Patient was found to have ejection fraction around 50% Not in acute exacerbation I's and O's Carotid artery stenosis I talked to Dr. Houser , she recommended carotid Doppler ultrasound Doppler ultrasound showed Severe (70-94%) stenosis of the left proximal internal carotid artery. Dr. Houser will proceed with surgery on Psoriasis Patient has multiple scaly patches on his extremities and chest Follow-up with staff physician in the outpatient settings Tobacco abuse Patient encouraged to stop smoking HTN (hypertension) Blood pressures is elevated in the morning with systolic blood pressure around 160 I increased the dose of lisinopril to 40 mg daily, I will add Norvasc 10 mg daily Hypertensive urgency Patient received treatment with permissive hypertension for 6-8 hours on the day of admission Labetalol IV when necessary ETOH abuse [facility] protocol PRN VS,Fishbone, I+O VS, Fishbone, I+O Vital Signs Date Time Temp Pulse Resp B/P (MAP) Pulse Ox O2 Delivery O2 Flow Rate FiO2 05/30/20 09:15 163/92 05/30/20 08:00 65 05/30/20 08:00 99.2 18 97 Room Air I&O- Last 24 Hours up to 6 AM 05/30/20 05:59 Intake Total 600 ml Output Total 650 ml Balance -50 ml STAN CRANE DO May 30, 2020 10:56
[2020-05-30 12:00] VITALS: BP 155/87
[2020-05-30 16:00] VITALS: BP 160/90
[2020-05-30 20:00] VITALS: BP 148/86
[2020-05-30] MEDS: ATORVASTATIN 20 MG TAB PO SCH (21:34)
[2020-05-30] MEDS: ENOXAPARIN 40MG/0.4ML SYRINGE (J1650 PER 10MG) SC SCH (21:34)
[2020-05-31] VITALS (7 sets, daily range): BP systolic 133–190; BP diastolic 80–99
[2020-05-31] MEDS: SLF 3 ML SYR IV SCH ×3 (05:55→20:21)
[2020-05-31 06:05] LABS: BASO # 0.1 10^3/uL (0.0-0.2); BASO % 1.1 % (0.0-1.0); EOS # 0.5 10^3/uL (0.0-0.5); EOS % 4.1 % (0.0-3.0); HEMATOCRIT 51.6 % (42.0-52.0); HEMOGLOBIN 16.5 g/dl (13.5-17.5); LYMPH % 8.6 % (24.0-44.0); MEAN CORPUSCULAR HEMOGLOBIN 32.7 pg (27.0-33.0); MEAN CORPUSCULAR VOLUME 102.2 fl (80.0-96.0); MONO # 1.4 10^3/uL (0.0-0.8); MONO % 12.4 % (2.0-8.0); NEUTROPHILS # 8.2 10^3/uL (1.5-8.5); NEUTROPHILS % 72.6 % (36.0-66.0); PLATELET COUNT, AUTOMATED 191 10^3/uL (150-450); RED BLOOD COUNT 5.05 10^6/uL (4.30-6.10); WHITE BLOOD COUNT 11.3 10^3/uL (4.0-10.0)
[2020-05-31 06:33] LABS: ALBUMIN 3.2 GM/DL (3.2-5.2); ALT/SGPT 32 U/L (12-78); BILIRUBIN,TOTAL 0.8 MG/DL (0.2-1.0); BLOOD UREA NITROGEN 14 MG/DL (7-18); CALCIUM LEVEL 8.7 MG/DL (8.5-10.1); CARBON DIOXIDE LEVEL 26 MEQ/L (21-32); CHLORIDE LEVEL 109 MEQ/L (98-107); CREATININE FOR GFR 1.04 MG/DL (0.70-1.30); GLOMERULAR FILTRATION RATE > 60.0 (>60); GLUCOSE, FASTING 100 MG/DL (70-100); POTASSIUM SERUM 3.9 MEQ/L (3.5-5.1); SODIUM LEVEL 138 MEQ/L (136-145); TOTAL PROTEIN 6.5 GM/DL (6.4-8.2)
[2020-05-31] MEDS: ASPIRIN 81 MG CHEW TABLET PO SCH (08:23)
[2020-05-31] MEDS: CLOPIDOGREL 75 MG TAB PO SCH (08:23)
--- NOTE | 2020-05-31 08:59 | IPNPDOC ---
Date Seen The patient was seen on 05/31/20. Progress Note Patient seen and examined. He says he is doing well with no new neurologic deficits. He still has a little numbness on the right lateral lower lip, but otherwise his perioral numbness has completely resolved. He is eating and drinking without difficulty. His speech is clear. No upper or lower extremity motor deficits or sensory deficits are noted. Pupils are equal and per the patient his vision is intact without deficit. I asked if he had any further questions about his left carotid endarterectomy tomorrow. He says he does not have any further questions. Consent is on the chart. We have made him nothing by mouth after midnight and I discussed this with him. He has 2 g of Ancef ordered to be given within an hour of incision in the morning. Do not hold the aspirin or Plavix. We appreciate the opportunity to participate in the care of this patient. VS, I&O, 24H, Shawnbone Vital Signs/I&O Vital Signs Date Time Temp Pulse Resp B/P (MAP) Pulse Ox O2 Delivery O2 Flow Rate FiO2 05/31/20 08:23 74 154/87 05/31/20 08:21 97.8 18 96 Room Air I&O- Last 24 Hours up to 6 AM 05/31/20 05:59 Intake Total 1080 ml Output Total 500 ml Balance 580 ml Laboratory Data 24H LABS Laboratory Tests 2 05/31/20 05:34: Immature Granulocyte % (Auto) 1.2, Neutrophils (%) (Auto) 72.6H, Lymphocytes (%) (Auto) 8.6L, Monocytes (%) (Auto) 12.4H, Eosinophils (%) (Auto) 4.1H, Basophils (%) (Auto) 1.1H, Neutrophils # (Auto) 8.2, Lymphocytes # (Auto) 1.0L, Monocytes # (Auto) 1.4H, Eosinophils # (Auto) 0.5, Basophils # (Auto) 0.1, Nucleated Red Blood Cells % (auto) 0.0, Anion Gap 3L, Glomerular Filtration Rate > 60.0, Calcium Level 8.7, Magnesium Level 2.0, Total Bilirubin 0.8, Aspartate Amino Transf (AST/SGOT) 20, Alanine Aminotransferase (ALT/SGPT) 32, Alkaline Phosphatase 81, Total Protein 6.5, Albumin 3.2, Albumin/Globulin Ratio 1.0 CBC/BMP Laboratory Tests 05/31/20 05:34 ANI BLACKWELL MD May 31, 2020 08:59
--- NOTE | 2020-05-31 13:42 | IPNPDOC ---
Text Note Date of Service The patient was seen on 05/31/20. NOTE Subjective: No any acute events overnight. Patient continues to have right lower lip numbness. No any other focal deficiency Objective: GENERAL APPEARANCE: NAD HEENT: no scleral icterus, no JVD, EOMI CARDIOVASCULAR: S1S2 LUNGS: CTA ABDOMEN: soft & not tender w palpitation MUSCULOSKELETAL: no cyanosis, no swelling INTEGUMENT: no generalized pallor NEUROLOGICAL: cranial nerve function from 2-12 intact intact, follows commands, speech not dysarthric Assessment and plan: Assessment/Plan Patient is 49 years old male with past history of psoriasis and hypertension presented to the hospital with paresthesia or the lips and right oral cavity numbness. Patient stated that he woke up in the morning around 11:15 with lips paresthesia more on the right side. Also he noticed when he started drinking water he developed numbness of his right side of upper and lower gums. He noticed the tip of his tongue was numb as well. Subsequently after above hours oral numbness resolved, but he has been having lips paresthesia. Of note, patient didn't see PCP for years. He didn't take any medications for his blood pressure. Also patient is active smoker. Patient stated that he drinks on a daily basis 3 canes of beer for many years. In ER patient was found to have elevated blood pressure of 225/118, white blood count of 9, hemoglobin 17.8. CT head was negative for acute bleed. MRI of the brain showed Multiple small foci of acute ischemia in the left cerebral hemisphere including within the parietal postcentral gyrus in keeping with sensory symptoms described in the history. No evidence of hemorrhage. Sulcal blooming artifact within the left cerebral hemisphere likely corresponds to an occluded M3 segment vessel corresponding with the distribution of infarction. Abnormal distal left internal carotid artery flow void suspicious for slow flow or thrombus. CVA (cerebral vascular accident) Patient has multiple risk factors including uncontrolled blood pressure, smoking history, alcohol abuse MRI showed Multiple small foci of acute ischemia in the left cerebral hemisphere including within the parietal postcentral gyrus in keeping with sensory symptoms described in the history MRA showed Moderate luminal narrowing of the left cervical internal carotid artery through the carotid terminus without complete occlusion. 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 I talked to Dr. Calero he rec ANTHONY during this admission Patient received Full dose of Aspirin, statin on admission On 05/28/20 CTA neck showed Atherosclerotic changes starting at the carotid bulb with moderate narrowing followed by greater than 70% narrowing through the proximal internal carotid artery and subsequent asymmetric luminal narrowing (as compared to the normal right carotid artery) to the skull base Dr. Calero recommended to add Plavix 75 mg and continue aspirin with dose [address] Dumont did ANTHONY on 05/29/20, it shows: Left ventricle hypertrophy with estimated ejection fraction (EF) approximately 50% and no segmental wall motion abnormalities. 2. Aortic sclerosis on tricuspid aortic valve resulting in no significant stenosis and mild insufficiency. 3. Normal mitral tricuspid and pulmonic valves. 4. Intact atrial septum. 5. Left atrial appendage free of thrombus. 6. Normal flow in pulmonary veins. 7. Prominent atherosclerosis of thoracic aorta. Diastolic CHF Patient was found to have ejection fraction around 50% Not in acute exacerbation I's and O's Carotid artery stenosis I talked to Dr. Houser , she recommended carotid Doppler ultrasound Doppler ultrasound showed Severe (70-94%) stenosis of the left proximal internal carotid artery. Dr. Houser will proceed with surgery on Psoriasis Patient has multiple scaly patches on his extremities and chest Follow-up with medical sociologist in the outpatient settings Tobacco abuse Patient encouraged to stop smoking HTN (hypertension) Blood pressures is elevated in the morning with systolic blood pressure around 160 I increased the dose of lisinopril to 40 mg daily, Norvasc 10 mg daily Hypertensive urgency Patient received treatment with permissive hypertension for 6-8 hours on the day of admission Labetalol IV when necessary ETOH abuse [facility] protocol PRN VS,Fishbone, I+O VS, Fishbone, I+O Laboratory Tests 05/31/20 05:34 Vital Signs Date Time Temp Pulse Resp B/P (MAP) Pulse Ox O2 Delivery O2 Flow Rate FiO2 05/31/20 12:00 98.6 76 18 159/86 (110) 99 Room Air I&O- Last 24 Hours up to 6 AM 05/31/20 06:00 Intake Total 1440 ml Output Total 900 ml Balance 540 ml STAN CRANE DO May 31, 2020 13:42
[2020-05-31] MEDS: ACETAMINOPHEN TAB 650MG DOSE (2X325MG) PO PRN (16:21)
[2020-05-31] MEDS: ATORVASTATIN 20 MG TAB PO SCH (20:20)
[2020-06-01] VITALS (25 sets, daily range): BP systolic 118–157; BP diastolic 59–87
[2020-06-01] MEDS: SLF 3 ML SYR IV SCH ×3 (06:00→21:39)
[2020-06-01] MEDS ORDERED: ceFAZolin SOD 2 GM in IV 1 EA IV ONE (06:00)
[2020-06-01 06:09] LABS: BASO # 0.1 10^3/uL (0.0-0.2); BASO % 0.9 % (0.0-1.0); EOS % 0.5 % (0.0-3.0); HEMATOCRIT 52.3 % (42.0-52.0); HEMOGLOBIN 16.8 g/dl (13.5-17.5); LYMPH # 0.6 10^3/uL (1.5-5.0); LYMPH % 7.8 % (24.0-44.0); MEAN CORPUSCULAR HEMOGLOBIN 32.4 pg (27.0-33.0); MEAN CORPUSCULAR HGB CONC 32.1 g/dl (32.0-36.5); MEAN CORPUSCULAR VOLUME 100.8 fl (80.0-96.0); MONO % 12.9 % (2.0-8.0); NEUTROPHILS # 6.1 10^3/uL (1.5-8.5); NEUTROPHILS % 76.2 % (36.0-66.0); PLATELET COUNT, AUTOMATED 181 10^3/uL (150-450); RED BLOOD COUNT 5.19 10^6/uL (4.30-6.10); WHITE BLOOD COUNT 8.1 10^3/uL (4.0-10.0)
[2020-06-01 06:35] LABS: ALBUMIN 3.4 GM/DL (3.2-5.2); ALT/SGPT 41 U/L (12-78); BILIRUBIN,TOTAL 0.8 MG/DL (0.2-1.0); BLOOD UREA NITROGEN 12 MG/DL (7-18); CALCIUM LEVEL 8.6 MG/DL (8.5-10.1); CARBON DIOXIDE LEVEL 24 MEQ/L (21-32); CHLORIDE LEVEL 107 MEQ/L (98-107); CREATININE FOR GFR 1.01 MG/DL (0.70-1.30); GLOMERULAR FILTRATION RATE > 60.0 (>60); GLUCOSE, FASTING 100 MG/DL (70-100); MAGNESIUM LEVEL 1.9 MG/DL (1.8-2.4); SODIUM LEVEL 138 MEQ/L (136-145); TOTAL PROTEIN 6.6 GM/DL (6.4-8.2)
[2020-06-01] MEDS ORDERED: BUPIVACAINE HCL 0.25% 30ML VIAL As Ordered ONE (07:13)
[2020-06-01] MEDS ORDERED: HEPARIN SOD (PORCINE) 5000UNITS/ML 1ML VIAL/SYRINGE As Ordered ONE ×2 (07:13→08:49)
[2020-06-01] MEDS ORDERED: LIDOCAINE 1% MDV 20ML VIAL As Ordered ONE (07:13)
--- NOTE | 2020-06-01 07:14 | IPNPDOC ---
Date Seen The patient was seen on 06/01/20. Progress Note Patient seen and examined. He is consented and ready for left carotid endarterectomy. We'll proceed this morning. No new neurologic deficits noted today. Still has some right lower lip numbness, but otherwise all deficits have resolved. He will make an ICU bed postop for blood pressure monitoring and neurologic checks. We appreciate the opportunity to participate in the care of this patient. VS, I&O, 24H, Fishbone Vital Signs/I&O Vital Signs Date Time Temp Pulse Resp B/P (MAP) Pulse Ox O2 Delivery O2 Flow Rate FiO2 06/01/20 04:00 100.8 87 18 129/63 (85) 94 Room Air I&O- Last 24 Hours up to 6 AM 06/01/20 06:00 Intake Total 2230 ml Output Total 2340 ml Balance -110 ml Laboratory Data 24H LABS Laboratory Tests 2 06/01/20 05:23: Immature Granulocyte % (Auto) 1.7, Neutrophils (%) (Auto) 76.2H, Lymphocytes (%) (Auto) 7.8L, Monocytes (%) (Auto) 12.9H, Eosinophils (%) (Auto) 0.5, Basophils (%) (Auto) 0.9, Neutrophils # (Auto) 6.1, Lymphocytes # (Auto) 0.6L, Monocytes # (Auto) 1.0H, Eosinophils # (Auto) 0.0, Basophils # (Auto) 0.1, Nucleated Red Blood Cells % (auto) 0.0, Anion Gap 7L, Glomerular Filtration Rate > 60.0, Calcium Level 8.6, Magnesium Level 1.9, Total Bilirubin 0.8, Aspartate Amino Transf (AST/SGOT) 29, Alanine Aminotransferase (ALT/SGPT) 41, Alkaline Phosphatase 84, Total Protein 6.6, Albumin 3.4, Albumin/Globulin Ratio 1.1 CBC/BMP Laboratory Tests 06/01/20 05:23 ANI BLACKWELL MD Jun 01, 2020 07:14
[2020-06-01] MEDS ORDERED: PHENYLEPHRINE 10MG/ML 1ML VIAL (J2370 PER 1) As Ordered ONE (07:24)
[2020-06-01] MEDS ORDERED: BUPIVACAINE/EPIN 0.5% 30 ML VIAL As Ordered ONE (08:09)
[2020-06-01] MEDS ORDERED: ePHEDrine SULFATE 25 MG/5 ML(5MG/ML) SYRINGE As Ordered ONE ×2 (08:13→10:54)
[2020-06-01] MEDS ORDERED: SUGAMMADEX SODIUM 500 MG/5 ML VIAL (BRIDION) As Ordered ONE (08:16)
[2020-06-01] MEDS ORDERED: ETOMIDATE INJ 20MG/10ML VIAL As Ordered ONE (08:16)
[2020-06-01] MEDS ORDERED: METOCLOPRAMIDE INJ 10MG/2ML VIAL (J2765 PER 1) As Ordered ONE (08:16)
[2020-06-01] MEDS ORDERED: ONDANSETRON 4MG/2ML VIAL As Ordered ONE (08:16)
[2020-06-01] MEDS ORDERED: ROCURONIUM BROMIDE 50 MG/5 ML VIAL As Ordered ONE (08:16)
[2020-06-01] MEDS ORDERED: MIDAZOLAM INJ 2MG/2ML VIAL (J2250 PER 1MG) As Ordered ONE (08:16)
[2020-06-01] MEDS ORDERED: propofoL 200 MG/20 ML VIAL As Ordered ONE (08:16)
[2020-06-01] MEDS ORDERED: dexameTHASONE 4 MG/ML 1ML VIAL (J1100 PER 1MG) As Ordered ONE (08:16)
[2020-06-01] MEDS ORDERED: fentaNYL 250 MCG/5 ML INJECTION (J3010) As Ordered ONE (08:16)
[2020-06-01] MEDS ORDERED: LIDOCAINE 2% 100MG/5ML SDV (FOR ANES.) As Ordered ONE (08:16)
[2020-06-01] MEDS ORDERED: ACETAMINOPHEN 1000MG 100ML IV BTL (OFIRMEV) (J0131 PER 10MG) As Ordered ONE (08:23)
[2020-06-01] MEDS ORDERED: SEVOFLURANE INHAL SOLN 250 ML BTL As Ordered ONE (08:25)
[2020-06-01] MEDS ORDERED: DESFLURANE 240 ML INHALANT As Ordered ONE (08:27)
[2020-06-01] MEDS ORDERED: LABETALOL 100MG/20ML VIAL As Ordered ONE ×2 (09:47→11:22)
[2020-06-01] MEDS ORDERED: PHENYLephrine 500MCG 5ML (100MCG/ML) SYRINGE As Ordered ONE (10:54)
[2020-06-01] MEDS ORDERED: LABETALOL 100MG/20ML VIAL IV PRN (11:25)
[2020-06-01] MEDS ORDERED: hydrALAZINE 20MG/ML 1ML VIAL (J0360 PER 20MG) IV PRN ×2 (11:25→12:10)
[2020-06-01] MEDS: LABETALOL 100MG/20ML VIAL IV PRN ×3 (11:25→11:50)
[2020-06-01] MEDS ORDERED: PERCOCET 5MG/325MG TAB PO PRN ×2 (12:00)
[2020-06-01] MEDS ORDERED: ONDANSETRON 4MG/2ML VIAL IV PRN ×2 (12:00)
[2020-06-01] MEDS ORDERED: CHLORASEPTIC SPRAY MT PRN (12:00)
[2020-06-01] MEDS ORDERED: fentaNYL 100 MCG/2 ML INJECTION (J3010) IV PRN (12:00)
[2020-06-01] MEDS ORDERED: LR 1,000 ML IV SCH (12:00)
[2020-06-01] MEDS ORDERED: oxyCODONE 5MG TAB PO PRN (12:00)
--- NOTE | 2020-06-01 12:18 | ROOPDOC ---
[facility] Report Of Operation Report of Operation DATE OF PROCEDURE: 06/01/20 PREPROCEDURE DIAGNOSES: Left carotid stenosis, symptomatic POSTPROCEDURE DIAGNOSES: Same PROCEDURE: Left carotid endarterectomy with Xenosure patch angioplasty SURGEON: Mendy Summers MD R D ENGINEER SURGEON: Ed Soto MD ANESTHESIA: General anesthesia and local INDICATION FOR PROCEDURE: This is a very pleasant 49 year old gentleman with symptomatic left carotid stenosis. The patient experienced lower lip numbness, intraoral numbness, and numbness of his tongue that is now mostly resolved with only residual right lower lip numbness. No other new focal neurological deficits noted today. He is on best medical management with aspirin, Plavix, and statin. Risks, benefits, and alternatives to a left carotid endarterectomy were explained to the patient. He is agreeable to proceed. Informed consent was obtained. REPORT OF OPERATION: The patient was brought to the operating room in stable condition. General anesthesia and antibiotics were administered without complication. His left neck and chest were prepped and draped in a sterile fashion. A timeout was performed. Local anesthesia was a scorer single to the skin and subcutaneous tissue over the anterior border of the sternocleidomastoid. Skin knife was used to make an oblique incision and carried down to the subcutaneous tissue and platysma with Bovie cautery. The external jugular vein was large and right across the center of her incision so we did suture ligated and divided this. We then continued or dissection along the anterior border of sternocleidomastoid. The jugular vein was identified and skeletonized along the anterior border. The facial vein and other small bridging veins were suture ligated and divided. We then dissected down to the common carotid artery. This was skeletonized proximally and distally in a vessel loop was placed. We continued or dissection onto the external carotid artery and vessels were placed around the superior thyroid artery and the external carotid. 5000 units of heparin was given by anesthesia and allowed circulate. We continued our dissection onto the internal carotid artery. The hypoglossal nerve was identified and noted to be fairly low towards the bifurcation. We did carefully mobilize this cephalad to give herself a larger exposure for adequate endarterectomy of the internal carotid artery. We then dissected more distally in the internal carotid artery until we were well above the palpable plaque. A vessel loop was placed. Next, we secured the Vesseloops and an arteriotomy was made starting on common carotid artery and extending beyond the area of dense plaque in the internal carotid artery. An 8 [place] shunt was placed in the internal carotid artery good backbleeding was noted. The Vesseloops was resecured. We then placed the shunt into the common carotid artery in the vessel loop was resecured. Flow was confirmed through the shunt with Doppler. We then carefully endarterectomized the internal carotid artery to a good endpoint, the common carotid artery to good endpoint, and Roseline out the plaque with eversion of the external carotid artery to a good endpoint. Copious near occlusive plaque was noted. This was sent for pathology. We then took care to remove all loose intimate debris. It we irrigated with heparinized saline. Once we were satisfied with the endarterectomy, a xenosure patch was anastomosed and running fashion with hemostatic Prolene suture. Before the final sutures are placed, we irrigated with heparinized saline, and removed the shunt. We irrigated again and the final sutures were placed. We then restored flow first through the external carotid artery and superior thyroid artery, then the common carotid artery, and after 10 beats of the heart restored flow to the internal carotid artery. Good hemostasis was noted. Surgicel was placed over the patch and gentle pressure was held to manage mild bleeding from the suture holes. We then irrigated with saline. A VESNA drain was placed and secured with a nylon sutur e. At this point the surgery, I had to attend to an emergency, and Dr Soto was kind enough to come in and close the incision. The deep tissues and platysma were approximated with 2-0 Vicryl suture. The dermal layer was closed with 3-0 Vicryl suture. The skin was closed with a running subcuticular Monocryl suture. Mastisol and Steri-Strips were used to dress the incision. A drain sponge was placed around the drain and a 4 x 4 and Tegaderm were placed his final dressings over the neck. The patient was then awakened in the OR and was able to move all 4 extremities to command and no focal deficits noted. The patient was the next abated and he was was then taken to recovery in stable condition. At this point, I was again able to take over care of my patient again and saw him in recovery and he was doing well. No significant swelling or bleeding from the left neck, blood pressure well controlled, neurologically intact. He tolerated the procedure and anesthesia well. SPECIMEN: Left carotid plaque sent for pathology ESTIMATED BLOOD LOSS: Approximately 100 mL. COMPLICATIONS: None. PLAN: ICU postop. Goal SBP <150mmHg, HR <80. Keep HOB elevated. Ice ok left neck. Analgesia prn. Monitor L neck for hematoma and monitor VESNA output. Frequent neurologic checks. If patient is hemodynamically/neurologically stable tomorrow, able to ambulate, UO good, no hematoma and pain controlled, may be able to d/c home tomorrow. Continue aspirin Plavix and statin. We appreciate the opportunity to participate in the care of this patient. MENDY SUMMERS MD Jun 01, 2020 12:18
--- NOTE | 2020-06-01 14:01 | IPNPDOC ---
Text Note Date of Service The patient was seen on 06/01/20. NOTE Subjective: Left carotid endarterectomy was done today by Dr. Rawls. Rose link tolerates procedure well Objective: GENERAL APPEARANCE: NAD HEENT: no scleral icterus, no JVD, EOMI, dressing over left neck CARDIOVASCULAR: S1S2 LUNGS: CTA ABDOMEN: soft & not tender w palpitation MUSCULOSKELETAL: no cyanosis, no swelling INTEGUMENT: no generalized pallor NEUROLOGICAL: cranial nerve function from 2-12 intact intact, follows commands, speech not dysarthric Assessment and plan: Assessment/Plan Patient is 49 years old male with past history of psoriasis and hypertens ion presented to the hospital with paresthesia or the lips and right oral cavity numbness. Patient stated that he woke up in the morning around 11:15 with lips paresthesia more on the right side. Also he noticed when he started drinking water he developed numbness of his right side of upper and lower gums. He noticed the tip of his tongue was numb as well. Subsequently after above hours oral numbness resolved, but he has been having lips paresthesia. Of note, patient didn't see PCP for years. He didn't take any medications for his blood pressure. Also patient is active smoker. Patient stated that he drinks on a daily basis 3 canes of beer for many years. In ER patient was found to have elevated blood pressure of 225/118, white blood count of 9, hemoglobin 17.8. CT head was negative for acute bleed. MRI of the brain showed Multiple small foci of acute ischemia in the left cerebral he misphere including within the parietal postcentral gyrus in keeping with sensory symptoms described in the history. No evidence of hemorrhage. Sulcal blooming artifact within the left cerebral hemisphere likely corresponds to an occluded M3 segment vessel corresponding with the distribution of infarction. Abnormal distal left internal carotid artery flow void suspicious for slow flow or thromb us. CVA (cerebral vascular accident) Patient has multiple risk factors including uncontrolled blood pressure, smoking history, alcohol abuse MRI showed Multiple small foci of acute ischemia in the left cerebral hemisphere including within the parietal postcentral gyrus in keeping with sensory sym ptoms described in the history MRA showed Moderate luminal narrowing of the left cervical internal carotid artery through the carotid terminus without complete occlusion. 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 I talked to Dr. Calero he rec ANTHONY during this admission Patient received Full dose of Aspirin, statin on admission On 05/28/20 CTA neck showed Atherosclerotic changes starting at the carotid bulb with moderate narrowing followed by greater than 70% narrowing through the proximal internal carotid artery and subsequent asymmetric luminal narrowing (as compared to the normal right carotid artery) to the skull base Dr. Calero recommended to add Plavix 75 mg and continue aspirin with dose [address] Dumont did ANTHONY on 05/29/20, it shows: Left ventricle hypertrophy with estimated ejection fraction (EF) approximately 50% and no segmental wall motion abnormalities. 2. Aortic sclerosis on tricuspid aortic valve resulting in no significant stenosis and mild insufficiency. 3. Normal mitral tricuspid and pulmonic valves. 4. Intact atrial septum. 5. Left atrial appendage free of thrombus. 6. Normal flow in pulmonary veins. 7. Prominent atherosclerosis of thoracic aorta. Diastolic CHF Patient was found to have ejection fraction around 50% Not in acute exacerbation I's and O's Carotid artery stenosis I talked to Dr. Houser , she recommended carotid Doppler ultrasound Doppler ultrasound showed Severe (70-94%) stenosis of the left proximal internal carotid artery. Dr. Houser did left carotid endarterectomy today. Patient tolerates procedure well Psoriasis Patient has multiple scaly patches on his extremities and chest Follow-up with presales engineer in the outpatient settings Tobacco abuse Patient encouraged to stop smoking HTN (hypertension) Blood pressures is elevated in the morning with systolic blood pressure around 160 I increased the dose of lisinopril to 40 mg daily, Norvasc 10 mg daily Hypertensive urgency Patient received treatment with permissive hypertension for 6-8 hours on the day of admission Labetalol IV when necessary ETOH abuse [facility] protocol PRN VS,Fishbone, I+O VS, Fishbone, I+O Laboratory Tests 06/01/20 05:23 Vital Signs Date Time Temp Pulse Resp B/P (MAP) Pulse Ox O2 Delivery O2 Flow Rate FiO2 06/01/20 13:00 97.2 66 18 134/87 (103) 98 Nasal Cannula 3 I&O- Last 24 Hours up to 6 AM 06/01/20 05:59 Intake Total 2240 ml Output Total 2420 ml Balance -180 ml STAN CRANE DO Jun 01, 2020 14:01
[2020-06-01] MEDS: CLOPIDOGREL 75 MG TAB PO SCH (16:06)
[2020-06-01] MEDS: ASPIRIN 81 MG CHEW TABLET PO SCH (16:07)
[2020-06-01] MEDS: ATORVASTATIN 20 MG TAB PO SCH (21:38)
[2020-06-02] VITALS (12 sets, daily range): BP systolic 123–161; BP diastolic 63–95
[2020-06-02] MEDS: ACETAMINOPHEN TAB 650MG DOSE (2X325MG) PO PRN (04:13)
[2020-06-02 06:05] LABS: BASO # 0.1 10^3/uL (0.0-0.2); BASO % 0.5 % (0.0-1.0); EOS # 0.2 10^3/uL (0.0-0.5); EOS % 2.4 % (0.0-3.0); HEMATOCRIT 45.8 % (42.0-52.0); LYMPH # 1.2 10^3/uL (1.5-5.0); LYMPH % 12.7 % (24.0-44.0); MEAN CORPUSCULAR HEMOGLOBIN 32.5 pg (27.0-33.0); MEAN CORPUSCULAR HGB CONC 32.1 g/dl (32.0-36.5); MEAN CORPUSCULAR VOLUME 101.3 fl (80.0-96.0); MONO # 1.4 10^3/uL (0.0-0.8); MONO % 15.8 % (2.0-8.0); NEUTROPHILS # 6.2 10^3/uL (1.5-8.5); NEUTROPHILS % 67.8 % (36.0-66.0); PLATELET COUNT, AUTOMATED 175 10^3/uL (150-450); RED BLOOD COUNT 4.52 10^6/uL (4.30-6.10); WHITE BLOOD COUNT 9.1 10^3/uL (4.0-10.0)
[2020-06-02 06:11] LABS: HEMOGLOBIN 14.7 g/dl (13.5-17.5)
[2020-06-02] MEDS: SLF 3 ML SYR IV SCH (06:13)
[2020-06-02 06:27] LABS: ALBUMIN 2.9 GM/DL (3.2-5.2); ALT/SGPT 37 U/L (12-78); BILIRUBIN,TOTAL 0.5 MG/DL (0.2-1.0); BLOOD UREA NITROGEN 14 MG/DL (7-18); CALCIUM LEVEL 7.9 MG/DL (8.5-10.1); CARBON DIOXIDE LEVEL 26 MEQ/L (21-32); CHLORIDE LEVEL 106 MEQ/L (98-107); CREATININE FOR GFR 0.82 MG/DL (0.70-1.30); GLOMERULAR FILTRATION RATE > 60.0 (>60); GLUCOSE, FASTING 109 MG/DL (70-100); MAGNESIUM LEVEL 1.9 MG/DL (1.8-2.4); POTASSIUM SERUM 3.6 MEQ/L (3.5-5.1); SODIUM LEVEL 137 MEQ/L (136-145); TOTAL PROTEIN 6.2 GM/DL (6.4-8.2)
--- NOTE | 2020-06-02 07:53 | IPNPDOC ---
Date Seen The patient was seen on 06/02/20. Progress Note Patient seen and examined postop day 1 status post left carotid endarterectomy. He's doing well. Pain well controlled. Minimal swelling left neck, minimal VESNA drain output. VESNA drain removed at the bedside. Opening cleaned and dressed with Steri-Strips 2 x 2 and paper tape. Steri-Strips are intact. Patient is eating well. He has had good urine output. He got up to the chair last night. He will a mbulate this morning now that his arterial line has been removed. His blood pressure has remained stable and he has not required antihypertensives overnight. We're pleased with his progress. On neuro exam, his bilateral upper and lower extremities have equal motor strength and sensory. No deficits noted. His vision is grossly intact. Pupils are reactive. Speech is clear. He does have a little bit of tongue deviation to the left, which we expect since we had to mobilize his hypoglossal nerve cephalad quite a bit to do the endarterectomy. I reassured him that this should start to resolve over the next few days and weeks. He said it is not affecting his speech or mastication. From a vascular surgery standpoint, to okay for the patient to discharge home today. Follow-up in vascular clinic in 1 week to check incision. Okay to shower, use a baby shampoo, warm water not too hot or cold, patent incision and Steri-Strips dry. Currently Steri-Strips intact for 7 days to help with healing. Lifting greater than 5 pounds, no strenuous exercise for 1 week. No work for at least 1 week. We will decide at his next clinic appointment when he can go back to work. No driving for at least 1 week. We appreciate the opportunity to participate in the care of this patient. VS, I&O, 24H, Fishbone Vital Signs/I&O Vital Signs Date Time Temp Pulse Resp B/P (MAP) Pulse Ox O2 Delivery O2 Flow Rate FiO2 06/02/20 07:00 64 18 138/95 (112) 97 Room Air 134/72 06/02/20 04:00 98.0 06/01/20 18:16 3.0 I&O- Last 24 Hours up to 6 AM 06/02/20 06:00 Intake Total 3140 ml Output Total 940 ml Balance 2200 ml Laboratory Data 24H LABS Laboratory Tests 2 06/02/20 05:45: Immature Granulocyte % (Auto) 0.8, Neutrophils (%) (Auto) 67.8H, Lymphocytes (%) (Auto) 12.7L, Monocytes (%) (Auto) 15.8H, Eosinophils (%) (Auto) 2.4, Basophils (%) (Auto) 0.5, Neutrophils # (Auto) 6.2, Lymphocytes # (Auto) 1.2L, Monocytes # (Auto) 1.4H, Eosinophils # (Auto) 0.2, Basophils # (Auto) 0.1, Nucleated Red Blood Cells % (auto) 0.0, Anion Gap 5L, Glomerular Filtration Rate > 60.0, Calcium Level 7.9L, Magnesium Level 1.9, Total Bilirubin 0.5, Aspartate Amino Transf (AST/SGOT) 32, Alanine Aminotransferase (ALT/SGPT) 37, Alkaline Phosphatase 73, Total Protein 6.2L, Albumin 2.9L, Albumin/Globulin Ratio 0.9 CBC/BMP Laboratory Tests 06/02/20 05:45 ANI BLACKWELL MD Jun 02, 2020 07:53
[2020-06-02] MEDS: ASPIRIN 81 MG CHEW TABLET PO SCH (08:23)
[2020-06-02] MEDS: CLOPIDOGREL 75 MG TAB PO SCH (08:23)
[2020-06-02] MEDS ORDERED: AMLO1TAB25 PO (10:06)
[2020-06-02] MEDS ORDERED: ATOR1TAB21 PO (10:06)
[2020-06-02] MEDS ORDERED: ACET1TAB55 PO (10:06)
[2020-06-02] MEDS ORDERED: LISI20TA33 PO (10:06)
[2020-06-02] MEDS ORDERED: CLOP75TA2 PO (10:06)
[2020-06-02] MEDS ORDERED: ASPI81CH8 PO (10:06)
--- NOTE | 2020-06-02 11:30 | DS.PDOC ---
Discharge Summary General Date of Admission May 27, 2020 at 15:01 Date of Discharge 06/02/20 Discharge Summary PROCEDURES PERFORMED DURING STAY: [None]. ADMITTING DIAGNOSES: Diastolic CHF CVA (cerebral vascular accident) Carotid artery stenosis Psoriasis Tobacco abuse HTN (hypertension) Hypertensive urgency ETOH abuse Hyperlipidemia DISCHARGE DIAGNOSES: Diastolic CHF CVA (cerebral vascular accident) Carotid artery stenosis Psoriasis Tobacco abuse HTN (hypertension) Hypertensive urgency Hyperlipidemia ETOH abuse COMPLICATIONS/CHIEF COMPLAINT: Cva Hypertensive Urgency. HISTORY OF PRESENT ILLNESS: Patient is 49 years old male with past history of psoriasis and hypertension presented to the hospital with paresthesia or the lips and right oral cavity numbness. Patient stated that he woke up in the morning around 11:15 with lips paresthesia more on the right side. Also he noticed when he started drinking water he developed numbness of his right side of upper and lower gums. He noticed the tip of his tongue was numb as well. Subsequently after above hours oral numbness resolved, but he has been having lips paresthesia. Of note, patient didn't see PCP for years. He didn't take any medications for his blood pressure. Also patient is active smoker. Patient stated that he drinks on a daily basis 3 canes of beer for many years. In ER patient was found to have elevated blood pressure of 225/118, white blood count of 9, hemoglobin 17.8. CT head was negative for acute bleed. MRI of the brain showed Multiple small foci of acute ischemia in the left cerebral hemisphere including within the parietal postcentral gyrus in keeping with sensory symptoms described in the history. No evidence of hemorrhage. Sulcal blooming artifact within the left cerebral hemisphere likely corresponds to an occluded M3 segment vessel corresponding with the distribution of infarction. Abnormal distal left internal carotid artery flow void suspicious for slow flow or thrombus. HOSPITAL COURSE: During hospital stay the following issues addressed CVA (cerebral vascular accident) Patient has multiple risk factors including uncontrolled blood pressure, smoking history, alcohol abuse MRI showed Multiple small foci of acute ischemia in the left cerebral hemisphere including within the parietal postcentral gyrus in keeping with sensory symptoms described in the history MRA showed Moderate luminal narrowing of the left cervical internal carotid artery through the carotid terminus without complete occlusion. 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 I talked to Dr. Calero he rec ANTHONY during this admission Patient received Full dose of Aspirin, statin on admission On 05/28/20 CTA neck showed Atherosclerotic changes starting at the carotid bulb with moderate narrowing followed by greater than 70% narrowing through the proximal internal carotid artery and subsequent asymmetric luminal narrowing (as compared to the normal right carotid artery) to the skull base Dr. Calero recommended to add Plavix 75 mg and continue aspirin with dose [address] Dumont did ANTHONY on 05/29/20, it shows: Left ventricle hypertrophy with estimated ejection fraction (EF) approximately 50% and no segmental wall motion abnormalities. 2. Aortic sclerosis on tricuspid aortic valve resulting in no significant stenosis and mild insufficiency. 3. Normal mitral tricuspid and pulmonic valves. 4. Intact atrial septum. 5. Left atrial appendage free of thrombus. 6. Normal flow in pulmonary veins. 7. Prominent atherosclerosis of thoracic aorta. Diastolic CHF Patient was found to have ejection fraction around 50% Not in acute exacerbation I's and O's Carotid artery stenosis I talked to Dr. Houser , she recommended carotid Doppler ultrasound Doppler ultrasound showed Severe (70-94%) stenosis of the left proximal internal carotid artery. Dr. Houser did left carotid endarterectomy. 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 ALLERGIES: Please see below. PHYSICAL EXAMINATION ON DISCHARGE: VITAL SIGNS: Please see below. GENERAL APPEARANCE: NAD HEENT: no scleral icterus, no JVD, EOMI, dressing over left neck CARDIOVASCULAR: S1S2 LUNGS: CTA ABDOMEN: soft & not tender w palpitation MUSCULOSKELETAL: no cyanosis, no swelling INTEGUMENT: no generalized pallor NEUROLOGICAL: cranial nerve function from 2-12 intact intact, follows commands, speech not dysarthric LABORATORY DATA: Please see below. IMAGING:see above PROGNOSIS: Fair ACTIVITY: [As tolerated]. DIET: Cardiac DISPOSITION: 01 Home, Self-Care. DISCHARGE INSTRUCTIONS: Okay to shower, use a baby shampoo, warm water not too hot or cold, pat incision and Steri-Strips dry. Leave Steri-Strips intact for 7 days to help with healing. No Lifting greater than 5 pounds, no strenuous exercise for 1 week. No work for at least 1 week. We will decide at his next clinic appointment when he can go back to work. No driving for at least 1 week. Stop smoking, check blood pressure daily, follow-up with PCP, neurologist and vascular surgeon Stop drinking alcohol daily and excessively ITEMS TO FOLLOWUP ON ON OUTPATIENT: see above DISCHARGE CONDITION: [Stable]. TIME SPENT ON DISCHARGE: 50 minutes. Vital Signs/I&Os Vital Signs Date Time Temp Pulse Resp B/P (MAP) Pulse Ox O2 Delivery O2 Flow Rate FiO2 06/02/20 08:23 78 153/88 06/02/20 08:00 99.0 18 98 Room Air 06/01/20 18:16 3.0 I&O- Last 24 Hours up to 6 AM 06/02/20 06:00 Intake Total 3140 ml Output Total 940 ml Balance 2200 ml Laboratory Data Labs 24H Laboratory Tests 2 06/02/20 05:45: Immature Granulocyte % (Auto) 0.8, Neutrophils (%) (Auto) 67.8H, Lymphocytes (%) (Auto) 12.7L, Monocytes (%) (Auto) 15.8H, Eosinophils (%) (Auto) 2.4, Basophils (%) (Auto) 0.5, Neutrophils # (Auto) 6.2, Lymphocytes # (Auto) 1.2L, Monocytes # (Auto) 1.4H, Eosinophils # (Auto) 0.2, Basophils # (Auto) 0.1, Nucleated Red Blood Cells % (auto) 0.0, Anion Gap 5L, Glomerular Filtration Rate > 60.0, Calcium Level 7.9L, Magnesium Level 1.9, Total Bilirubin 0.5, Aspartate Amino Transf (AST/SGOT) 32, Alanine Aminotransferase (ALT/SGPT) 37, Alkaline Phosphatase 73, Total Protein 6.2L, Albumin 2.9L, Albumin/Globulin Ratio 0.9 CBC/BMP Laboratory Tests 06/02/20 05:45 Discharge Medications Scheduled Amlodipine Besylate (Amlodipine Besylate) 10 Mg Tablet, 10 MG PO DAILY Aspirin (Children's Aspirin) 81 Mg Tab.chew, 81 MG PO DAILY Atorvastatin Calcium (Atorvastatin Calcium) 20 Mg Tablet, 80 MG PO QHS Clopidogrel Bisulfate (Clopidogrel) 75 Mg Tablet, 75 MG PO DAILY Lisinopril (Lisinopril) 20 Mg Tablet, 40 MG PO BID Scheduled PRN Acetaminophen (Acetaminophen) 325 Mg Tablet, 650 MG PO Q4H PRN for PAIN OR FEVER Allergies Coded Allergies: No Known Drug Allergies (Verified Allergy, Unknown, 10/10/18) STAN CRANE DO Jun 02, 2020 11:30
== END 2020-06-02 11:00 | disposition home or self-care (01) | DRG 24 ==
LOC: M ED 12:38 → M ED INP 15:01 → ENRESERV 15:50 → M PCU 16:43 → M ICU 06-01 13:25
PROVIDERS: ADMIT Internal Medicine; ATTEND Internal Medicine
PROC: B246ZZ4 Ultrasonography of Right and Left Heart, Transesophageal (ICD-10-PCS; 2020-05-29)
PROC: 03CL0ZZ Extirpation of Matter from Left Internal Carotid Artery, Open Approach (ICD-10-PCS; principal; 2020-06-01 07:30)
DX: I63.132 Cerebral infarction due to embolism of left carotid artery (principal); I50.32 Chronic diastolic (congestive) heart failure; F10.10 Alcohol abuse, uncomplicated; F17.200 Nicotine dependence, unspecified, uncomplicated; I16.0 Hypertensive urgency; E78.5 Hyperlipidemia, unspecified; L40.8 Other psoriasis

== ENCOUNTER → 2020-07-10 | Outpatient (CLI) | payer OTHER ==
[~2020-07-10] MED LIST changes: +ACET1TAB55 PO; +AMLO1TAB25 PO; +ASPI81CH8 PO; +ATOR1TAB21 PO; +CLOP75TA2 PO; +LISI20TA33 PO
--- NOTE | 2020-07-10 11:08 | REP ---
INDICATION: STENOSIS status post endarterectomy COMPARISON: 05/28/2020. TECHNIQUE: Real-time ultrasound evaluation and duplex Doppler interrogation of the extracranial carotid vasculature is performed. FINDINGS: There is mild to moderate plaquing and narrowing in both carotid bulbs extending into the internal and external carotid arteries. Luminal narrowing is less than 50%. Previously noted stenosis of the left internal carotid artery is not visualized status post endarterectomy. There is no evidence of hemodynamically significant stenosis of either internal carotid artery. Normal flow velocities are seen. The right vertebral artery demonstrates normal direction of flow. Left vertebral artery is not visualized on today's exam. RIGHT LEFT Peak systolic velocity ICA 55.8 cm/s 78.9 cm/s End diastolic velocity ICA 16.5 cm/s 30.6 cm/s Peak systolic velocity CCA 104.5 cm/s 73.0cm/s Peak systolic velocity ECA 124.6 cm/s 85.4 cm/s ICA/CCA ratio 0.5 1.1 IMPRESSION: Bilateral luminal narrowing of the internal carotid arteries less than 50%. No evidence of hemodynamically significant stenosis. No evidence of left ICA stenosis status post endarterectomy. <Electronically signed by Chet Chen > 07/10/20 1106
== END ==
LOC: M RAD 09:57
PROVIDERS: ATTEND Physician Assistant
DX: I65.22 Occlusion and stenosis of left carotid artery (principal)

== ENCOUNTER → 2020-07-18 | Outpatient (CLI) | payer OTHER ==
[2020-07-18 12:45] LABS: CHOLESTEROL RISK RATIO 3.365 (<5)
== END ==
LOC: M LAB 10:35
PROVIDERS: ATTEND Physician Assistant
DX: I73.9 Peripheral vascular disease, unspecified (principal)

== ENCOUNTER → 2021-01-02 | Outpatient (CLI) | payer OTHER ==
[2021-01-02 11:34] LABS: BLOOD UREA NITROGEN 13 MG/DL (7-18); CALCIUM LEVEL 8.9 MG/DL (8.5-10.1); CARBON DIOXIDE LEVEL 28 MEQ/L (21-32); CHLORIDE LEVEL 104 MEQ/L (98-107); CHOLESTEROL LEVEL 174 MG/DL (<200); CREATININE FOR GFR 1.08 MG/DL (0.70-1.30); GLOMERULAR FILTRATION RATE > 60.0 (>56); GLUCOSE, FASTING 107 MG/DL (70-100); HDL CHOLESTEROL 60 MG/DL (>40); LDL CHOLESTEROL 100 MG/DL (<100); NON-HDL-C 114 MG/DL; POTASSIUM SERUM 4.7 MEQ/L (3.5-5.1); SODIUM LEVEL 137 MEQ/L (136-145); TRIGLYCERIDES LEVEL 68 MG/DL (<150)
== END ==
LOC: M LAB 09:35
PROVIDERS: ATTEND Student in an Organized Health Care Education/Training Program
DX: I10 Essential (primary) hypertension (principal); I70.90 Unspecified atherosclerosis

== ENCOUNTER → 2021-04-20 | Outpatient (CLI) | payer OTHER ==
[2021-04-20 12:29] LABS: BLOOD UREA NITROGEN 11 MG/DL (7-18); CALCIUM LEVEL 8.9 MG/DL (8.5-10.1); CARBON DIOXIDE LEVEL 28 MEQ/L (21-32); CHLORIDE LEVEL 104 MEQ/L (98-107); CREATININE FOR GFR 1.08 MG/DL (0.70-1.30); GLOMERULAR FILTRATION RATE > 60.0 (>56); GLUCOSE, FASTING 118 MG/DL (70-100); POTASSIUM SERUM 4.5 MEQ/L (3.5-5.1); SODIUM LEVEL 134 MEQ/L (136-145)
== END ==
LOC: M LAB 11:06
PROVIDERS: ATTEND Internal Medicine Cardiovascular Disease
DX: I73.9 Peripheral vascular disease, unspecified (principal)

== ENCOUNTER → 2021-05-07 | Outpatient (CLI) | payer OTHER ==
[~2021-05-07] MED LIST changes: +ISOVUE-370 76% 100ML VIAL As Ordered ONE
== END ==
LOC: M RAD 15:18
PROVIDERS: ATTEND Internal Medicine Cardiovascular Disease
DX: I73.9 Peripheral vascular disease, unspecified (principal)
CPT/HCPCS: 75635; Q9967

== ENCOUNTER → 2021-05-18 | Outpatient (CLI) | payer OTHER ==
[~2021-05-18] MED LIST changes: -ISOVUE-370 76% 100ML VIAL As Ordered ONE
== END ==
LOC: M LABSMTC 10:39
PROVIDERS: ATTEND Anesthesiology
DX: Z20.828 Contact with and (suspected) exposure to other viral communicable diseases (principal); Z11.59 Encounter for screening for other viral diseases

== ENCOUNTER 2021-05-23 08:02 | Day surgery (SDC) | payer OTHER ==
[~2021-05-23] VITALS: Ht 175.3 cm; Wt 79.4 kg
[~2021-05-23 08:02] MED LIST changes: +LIDOCAINE 2% 100MG/5ML SDV (FOR ANES.) As Ordered ONE; +NS 1,000 ML IV ONE; +propofoL 200 MG/20 ML VIAL As Ordered ONE
[2021-05-23] MEDS ORDERED: fentaNYL 100 MCG/2 ML INJECTION As Ordered ONE (09:37)
[2021-05-23 10:20] VITALS: BP 139/89
== END 2021-05-23 10:31 | disposition home or self-care (01) ==
LOC: M OPP 08:02
PROVIDERS: ATTEND Surgery
DX: D12.3 Benign neoplasm of transverse colon (principal); D12.4 Benign neoplasm of descending colon; Z86.010 Personal history of colon polyps; Z98.0 Intestinal bypass and anastomosis status; I10 Essential (primary) hypertension; E78.5 Hyperlipidemia, unspecified; Z79.899 Other long term (current) drug therapy
CPT/HCPCS: 45385; 88305; J3010

== ENCOUNTER → 2021-07-16 | Outpatient (REF) | payer OTHER ==
[~2021-07-16] MED LIST changes: -LIDOCAINE 2% 100MG/5ML SDV (FOR ANES.) As Ordered ONE; -NS 1,000 ML IV ONE; -propofoL 200 MG/20 ML VIAL As Ordered ONE
== END ==
LOC: M SFHCPLAZ 14:33
PROVIDERS: ATTEND Family Medicine
DX: Z53.9 Procedure and treatment not carried out, unspecified reason (principal)

== ENCOUNTER → 2021-07-20 | Outpatient (CLI) | payer OTHER ==
[2021-07-20 14:07] LABS: BLOOD UREA NITROGEN 11 MG/DL (7-18); CALCIUM LEVEL 9.3 MG/DL (8.5-10.1); CARBON DIOXIDE LEVEL 28 MEQ/L (21-32); CHLORIDE LEVEL 100 MEQ/L (98-107); CREATININE FOR GFR 1.04 MG/DL (0.70-1.30); GLOMERULAR FILTRATION RATE > 60.0 (>56); GLUCOSE, FASTING 106 MG/DL (70-100); POTASSIUM SERUM 4.7 MEQ/L (3.5-5.1); SODIUM LEVEL 133 MEQ/L (136-145)
== END ==
LOC: M LAB 12:05
PROVIDERS: ATTEND Family Medicine
DX: I10 Essential (primary) hypertension (principal)

== ENCOUNTER → 2021-08-23 | Outpatient (CLI) | payer OTHER | LOC: M RAD 11:27 | PROVIDERS: ATTEND Surgery | DX: I65.22 Occlusion and stenosis of left carotid artery (principal) ==

== ENCOUNTER → 2021-12-12 | Outpatient (CLI) | payer OTHER | LOC: M RAD 10:39 | DX: I73.9 Peripheral vascular disease, unspecified (principal) ==

== ENCOUNTER 2022-01-12 12:16 | Emergency (ER) | payer OTHER ==
[~2022-01-12] VITALS: Ht 175.3 cm; Wt 81.5 kg
[2022-01-12] MEDS ORDERED: GI COCKTAIL 50ML BTL(HYOSCYAMINE/MAALOX/LIDOCAINE VISCOUS)(1:3:1) PO ONE (13:05)
[2022-01-12] MEDS ORDERED: ASPIRIN 81 MG CHEW TABLET PO ONE (13:05)
[2022-01-12 13:32] LABS: BASO # 0.1 10^3/uL (0.0-0.2); BASO % 1.2 % (0.0-1.0); EOS # 0.1 10^3/uL (0.0-0.5); EOS % 1.5 % (0.0-3.0); HEMATOCRIT 51.2 % (42.0-52.0); LYMPH # 0.7 10^3/uL (1.5-5.0); LYMPH % 8.1 % (24.0-44.0); MEAN CORPUSCULAR HEMOGLOBIN 32.3 pg (27.0-33.0); MEAN CORPUSCULAR HGB CONC 33.2 g/dl (32.0-36.5); MEAN CORPUSCULAR VOLUME 97.2 fl (80.0-96.0); MONO # 0.7 10^3/uL (0.0-0.8); NEUTROPHILS # 7.4 10^3/uL (1.5-8.5); NEUTROPHILS % 80.8 % (36.0-66.0); PLATELET COUNT, AUTOMATED 227 10^3/uL (150-450); RED BLOOD COUNT 5.27 10^6/uL (4.30-6.10); WHITE BLOOD COUNT 9.2 10^3/uL (4.0-10.0)
[2022-01-12 14:10] LABS: CK-MB VALUE MASS 1.1 NG/ML (<3.6); MB/CK RELATIVE INDEX 1.51 (< OR =4)
[2022-01-12 14:11] LABS: INR 0.91; PROTHROMBIN TIME 12.4 SECONDS (12.5-14.5)
[2022-01-12 14:12] LABS: PARTIAL THROMBOPLASTIN TIME 26.3 SECONDS (24.8-34.2)
[2022-01-12 14:17] LABS: ALBUMIN 3.8 GM/DL (3.2-5.2); ALT/SGPT 29 U/L (12-78); BILIRUBIN,DIRECT 0.2 MG/DL (0.0-0.2); BILIRUBIN,TOTAL 0.7 MG/DL (0.2-1.0); BLOOD UREA NITROGEN 8 MG/DL (7-18); CALCIUM LEVEL 8.9 MG/DL (8.5-10.1); CARBON DIOXIDE LEVEL 26 MEQ/L (21-32); CHLORIDE LEVEL 103 MEQ/L (98-107); CREATININE FOR GFR 1.08 MG/DL (0.70-1.30); FREE T4 0.95 NG/DL (0.76-1.46); GLOMERULAR FILTRATION RATE > 60.0 (>56); GLUCOSE, FASTING 122 MG/DL (70-100); LIPASE 178 U/L (73-393); NT-PRO BNP 59 PG/ML (<125); POTASSIUM SERUM 4.4 MEQ/L (3.5-5.1); SODIUM LEVEL 133 MEQ/L (136-145); THYROID STIMULATING HORMONE 0.639 uIU/ML (0.358-3.740); TOTAL PROTEIN 7.4 GM/DL (6.4-8.2)
[2022-01-12] MEDS ORDERED: ISOVUE-370 76% 100ML VIAL As Ordered ONE (14:39)
[2022-01-12 14:40] LABS: CK-MB VALUE MASS 1.3 NG/ML (<3.6)
[2022-01-12 15:00] VITALS: BP 150/81
[2022-01-12] MEDS ORDERED: PROT1TAB2 PO (15:36)
[2022-01-12] MEDS ORDERED: PANTOPRAZOLE 40MG TAB (PROTONIX) PO ONE (15:40)
== END 2022-01-12 16:17 | disposition home or self-care (01) ==
LOC: M ED 12:16
DX: K29.70 Gastritis, unspecified, without bleeding (principal); I44.4 Left anterior fascicular block; I10 Essential (primary) hypertension; F10.10 Alcohol abuse, uncomplicated; F17.200 Nicotine dependence, unspecified, uncomplicated; Z86.73 Personal history of transient ischemic attack (TIA), and cerebral infarction without residual deficits; Z79.899 Other long term (current) drug therapy
CPT/HCPCS: 36415; 71045; 71275; 80048; 80076; 82550; 82553; 83690; 83880; 84439; 84443; 85025; 85610; 85730; 93005; 93041; 94760; 99285; Q9967

== ENCOUNTER → 2022-04-11 | Outpatient (CLI) | payer OTHER ==
[~2022-04-11] MED LIST changes: +PROHANCE 279.3MG/ML 15ML VIAL ONE; +PROT1TAB2 PO
== END ==
LOC: M PLAIMG 13:06
PROVIDERS: ATTEND Otolaryngology
DX: H90.A21 Sensorineural hearing loss, unilateral, right ear, with restricted hearing on the contralateral side (principal)
CPT/HCPCS: 70553; A9576

== ENCOUNTER → 2022-07-05 | Outpatient (CLI) | payer OTHER ==
[~2022-07-05] MED LIST changes: -PROHANCE 279.3MG/ML 15ML VIAL ONE
== END ==
LOC: M RAD 09:25
PROVIDERS: ATTEND Surgery
DX: I73.9 Peripheral vascular disease, unspecified (principal)

== ENCOUNTER → 2022-09-11 | Outpatient (CLI) | payer OTHER ==
[2022-09-11 12:28] LABS: BLOOD UREA NITROGEN 13 MG/DL (9-23); CALCIUM LEVEL 9.6 MG/DL (8.5-10.1); CARBON DIOXIDE LEVEL 29 MMOL/L (20-31); CHLORIDE LEVEL 105 MMOL/L (98-107); GLOMERULAR FILTRATION RATE > 60.0 (>56); GLUCOSE, FASTING 111 MG/DL (60-100); POTASSIUM SERUM 4.8 MMOL/L (3.5-5.1); SODIUM LEVEL 137 MMOL/L (136-145)
== END ==
LOC: M LAB 11:21
PROVIDERS: ATTEND Nurse Practitioner Family
DX: I10 Essential (primary) hypertension (principal)

== ENCOUNTER → 2022-09-20 | Outpatient (CLI) | payer OTHER | LOC: M RAD 15:35 | PROVIDERS: ATTEND Surgery | DX: I73.9 Peripheral vascular disease, unspecified (principal) ==

== ENCOUNTER → 2022-11-27 | Outpatient (CLI) | payer OTHER | LOC: M RAD 17:11 | PROVIDERS: ATTEND Student in an Organized Health Care Education/Training Program | DX: Z12.2 Encounter for screening for malignant neoplasm of respiratory organs (principal); F17.210 Nicotine dependence, cigarettes, uncomplicated ==